=== PATIENT | male | born 1955 | race Hispanic/Latino ===

== ENCOUNTER 2024-05-09 01:01 | Inpatient (IN) | payer OTHER ==
[~2024-05-09] VITALS: Ht 152.4 cm; Wt 60.6 kg
[2024-05-09] VITALS (9 sets, daily range): BP systolic 128–178; BP diastolic 63–77; PULSE 72–93; RESP 16–22; TEMP 97.7–98.5; O2SAT 98–99
--- NOTE | 2024-05-09 01:33 | ERN ---
ED Note History of Present Illness Stated Complaint: SHORTNESS OF BREATH Chief Complaint: Shortness of Breath Time Seen by MD: 01:09 Dictation: Patient is a 68-year-old male with a past medical history of myeloma who was brought from [facility] due to shortness breath. As per report the patient was complaining of shortness of breaths as well was found to be hypoglycemic with a glucose level of 58 at [facility]. Family decided to call EMS for further transportation to the emergency department in order to get evaluation by physician. The patient states that he was feeling better today, said that he has the past day of his life onto later tonight he started having shortness breath. He also reports that he has been urinating a lot more than usual. Allergies: Coded Allergies: No Known Drug Allergies (Unverified Allergy, Unknown, 05/09/24) Review of System Dictation NEGATIVE EXCEPT PER HPI Constitutional: Negative for fever,chills, and weight loss Eyes: Negative for injury, pain,redness, and discharge ENT: Negative for injury,pain or swelling Cardiovascular: denies chest pain, palpitations, and edema Respiratory: Reports shortness breath. Abdomen/GI: Negative for abdominal pain, nausea, vomiting, diarrhea, and constipation Back: Negative for injury and pain : Negative for injury, bleeding and discharge MS/Extremity: Negative for injury and deformity Skin: Negative for rash, and discoloration Neuro: Negative for headache, weakness, numbness, tingling, and seizure Psych: Negative for suicide ideation, homicidal ideation, and hallucinations Initial Vital Sign VS Vital Signs Date Time Temp Pulse Resp B/P (MAP) Pulse Ox O2 Delivery O2 Flow Rate FiO2 05/09/24 01:06 98.1 110 20 138/72 98 Room Air 0 05/09/24 01:29 21 Physical Exam Dictation General: awake, alert, NAD Head/Face: Normocephalic, atraumatic Eyes: PERRL, EOMI, vision at baseline ENT: oral cavity clear, TMs clear, no signs of infection Neck: Trachea midline, supple, no nuchal rigidity Cardiovascular: RRR, normal S1/S2, No MRGs, no JVD Respiratory: CTAB, no respiratory distress, No rales or wheezes Abdomen: Soft , no tender Skin: Warm, dry, normal turgor, no rash MS/Extremity: Pulses equal, no cyanosis, neurovascular intact, FROM Neuro: COAx4, GCS 15, strength 5/5, CN 2-12 intact, normal cerebellar exam, normal gait, Psych: Normal behavior, mood, and affect normal Results (Laboratory/Radiology) Laboratory/Radiology Laboratory Tests Test 05/09/24 01:37 05/09/24 02:51 White Blood Count 4.5 K/uL (4.8-10.8) L Red Blood Count 2.35 MIL/uL (4.50-6.20) L Hemoglobin 7.6 g/dL (14.0-18.0) L Hematocrit 22.9 % (42-54) L Mean Corpuscular Volume 97.4 fL (79-99) Mean Corpuscular Hemoglobin 32.3 pg (27.0-33.0) Mean Corpuscular Hemoglobin Concent 33.2 g/dL (32.0-36.0) Red Cell Distribution Width 14.2 % (11.0-15.5) Platelet Count 75 K/uL (130-400) L Mean Platelet Volume 10.4 fL (7.5-10.5) Immature Granulocyte % (Auto) 0.4 % (0-1) Neutrophils (%) (Auto) 77.8 % (40.0-77.0) H Lymphocytes (%) (Auto) 13.9 % (21.0-51.0) L Monocytes (%) (Auto) 5.7 % (3.0-13.0) Eosinophils (%) (Auto) 2.0 % (0.0-8.0) Basophils (%) (Auto) 0.2 % (0.0-5.0) Neutrophils # (Auto) 3.5 K/uL (1.8-7.7) Lymphocytes # (Auto) 0.6 K/uL (1.0-4.8) L Monocytes # (Auto) 0.3 K/uL (0.1-1.0) Eosinophils # (Auto) 0.09 K/uL (0.00-0.70) Basophils # (Auto) 0.01 K/uL (0.00-0.20) Absolute Immature Granulocyte (auto 0.02 K/uL (0-1) Nucleated Red Blood Cells 0.0 % (0.0-0.19) Sodium Level 135 mmol/L (136-145) L Potassium Level 3.3 mmol/L (3.5-5.1) L Chloride Level 102 mmol/L (101-111) Carbon Dioxide Level 28 mmol/L (21-32) Blood Urea Nitrogen 48 mg/dL (7-18) H Creatinine 2.9 mg/dL (0.5-1.3) H Glomerular Filtration Rate Calc 23 mL/min (>90) Random Glucose 49 mg/dL (70-105) *L Total Calcium 7.4 mg/dL (8.5-10.1) L Troponin I High Sensitivity 17 ng/L (4-75) B-Type Natriuretic Peptide 36 pg/mL (0-100) Whole Blood Glucose 173 MG/DL (70-110) H ED Course ED Course Orders Procedure Category Date Status Time Chest 1vw RAD 05/09/24 Taken 01:12 Cbc With Differential LAB 05/09/24 Complete 01:25 Basic Metabolic Panel LAB 05/09/24 Complete 01:25 Troponin I High LAB 05/09/24 Complete Sensitivity 01:25 B-Type Natriuretic LAB 05/09/24 Complete Peptide 01:26 Dextrose 50%-Water PHA 05/09/24 Complete (D50w) 02:30 Dextrose 50%-Water PHA 05/09/24 Complete (D50w) 02:24 Dextrose 5 % And 0.9 PHA 05/09/24 In Process % Nacl (D5ns) 03:00 Current Medications Medications (Trade) Dose Ordered Sig/Dominguez Route PRN Reason Start Time Stop Time Status Last Admin Dose Admin Dextrose (D50w) 50 ml ONCE ONCE IV 05/09/24 02:30 05/09/24 02:31 DC 05/09/24 02:27 Dextrose (D50w) 50 ml STK-MED ONCE IV 05/09/24 02:24 05/09/24 02:25 DC Dextrose/Sodium Chloride 1,000 ml @ 100 mls/hr Q10H IV 05/09/24 03:00 06/08/24 02:59 05/09/24 02:48 Vital Signs Date Time Temp Pulse Resp B/P (MAP) Pulse Ox O2 Delivery O2 Flow Rate FiO2 05/09/24 01:29 97.5 79 16 137/80 100 Room Air* 0 21 05/09/24 01:06 98.1 110 20 138/72 98 Room Air 0 Medical Decision Making MDM 68-year-old male with a past medical history of myeloma brought to the ER due to shortness breath and hypoglycemia. Patient received DuoNeb treatment at [facility] prior transportation to the emergency department. Initial vital signs performed at our facility reports vital signs within normal limits. Physical exam: Chest was clear to auscultation. No wheezing. Patient was saturating 100% on room air. We will do a chest x-ray, CBC and BMP Patient remains hypoglycemic with a glucose level in the 49. Laboratory was remarkable for CKD. Patient has anemia with a hemoglobin 7.6 He was started on D50 As well the d5 NS 100 cc ordered Case was discussed with the hospitalist who was agreeable to admit the patient for further medical evaluation of hypoglycemia, CKD, anemia. DX & DISP Disposition: Inpatient Decision to Admit Date: May 09, 2024 Decision to Admit Time: 03:35 Departure Impression: Primary Impression: Hypoglycemia Additional Impressions: CKD (chronic kidney disease), Anemia Condition: Stable Referrals: SELF,REFERRAL (PCP) ASH ANDREW MD May 09, 2024 01:33
[2024-05-09 01:47] LABS: BASOPHILS # (AUTO) 0.01 K/uL (0.00-0.20); BASOPHILS % (AUTO) 0.2 % (0.0-5.0); EOSINOPHILS # (AUTO) 0.09 K/uL (0.00-0.70); HEMATOCRIT 22.9 % (42-54); IMMATURE GRANULOCYTE ABSOLUTE 0.02 K/uL (0-1); LYMPHOCYTES # (AUTO) 0.6 K/uL (1.0-4.8); LYMPHOCYTES % (AUTO) 13.9 % (21.0-51.0); MEAN CORPUSCULAR HEMOGLOBIN 32.3 pg (27.0-33.0); MEAN CORPUSCULAR HGB CONC 33.2 g/dL (32.0-36.0); MEAN CORPUSCULAR VOLUME 97.4 fL (79-99); MONOCYTES # (AUTO) 0.3 K/uL (0.1-1.0); MONOCYTES % (AUTO) 5.7 % (3.0-13.0); NEUTROPHILS # (AUTO) 3.5 K/uL (1.8-7.7); NEUTROPHILS % (AUTO) 77.8 % (40.0-77.0); PLATELET COUNT (AUTO) 75 K/uL (130-400); RED BLOOD CELL COUNT(AUTO) 2.35 MIL/uL (4.50-6.20); RED CELL DISTRIBUTION WIDTH 14.2 % (11.0-15.5); WHITE BLOOD COUNT (AUTO) 4.5 K/uL (4.8-10.8)
[2024-05-09 01:57] LABS: CREATININE 2.9 mg/dL (0.5-1.3); POTASSIUM 3.3 mmol/L (3.5-5.1)
[2024-05-09] MEDS: DEXTROSE 50%-WATER 50 ML DISP.SYRIN IV ONE ×2 (02:27)
[2024-05-09] MEDS: DEXTROSE 5 % AND 0.9 % NACL 1,000 ML IV SCH (02:48)
--- NOTE | 2024-05-09 03:42 | HP ---
History of Present Illness Reason for Visit: sob History of Present Illness Mr. Villagomez is a 68-year-old male that was seen and examined today on 05/09/2024. Patient is a good historian of personal health. Patient's Andrey Ho is at bedside Patient states that he came to emergency department with a chief complaint of shortness of breath. Onset was 05/08/2024 at 5:30 p.m.. Location is to lungs. Duration is on and off. Character is described as, "like there was air missing in my chest."There was no alleviating factors. There was no aggravating f actors. Patient denies any associated chest pain. Patient reports associated weakness. Today in the emergency department potassium 3.3, glucose 49 mg/dL, creatinine 2.9, BUN 48, GFR 23. Emergency room physician recommended that patient be admitted with a diagnosis of hypoglycemic episode Past Medical History ADDITIONAL PAST MEDICAL HISTORY: [Negative history of diabetes, positive history for "bone cancer" with last chemo one year ago by Dr. Feldman. CKD] SOCIAL HISTORY: [Former smoker, negative alcohol use negative drug use. Patient lives with his . Patient has good access to health care through his insurance. Patient denies difficulty pain is bills. Patient is typically independent of all his ADLs. Patient is a retired from [employer]] SURGICAL HISTORY: [Denies] Review of Systems General: No Fever, No Chills, No Night Sweats, No Fatigue, No Malaise, No Appetite, No Other HEENT: No Head Aches, No Visual Changes, No Eye Pain, No Ear Pain, No Dysphas ia, No Sinus Congestion, No Post Nasal Drip, No Sore Throat, No Other Pulmonary: Dyspnea; No Cough, No Pleuritic Chest Pain, No Other Cardiovascular: No: Chest Pain, Palpitations, Orthopnea, Paroxysmal Noc. Dyspn ea, Edema, Lt Headedness, Other Gastrointestinal: No: Nausea, Vomiting, Abdominal Pain, Diarrhea, Constipation, Melena, Hematochezia, Other Genitourinary: No Dysuria, No Frequency, No Incontinence, No Hematuria, No Retention, No Other Musculoskeletal: No: other, neck pain, shoulder pain, arm pain, back pain, hand pain, leg pain, foot pain Skin: No Urticaria, No Rash, No Other Neurological: Weakness; No: Numbness, Incoordination, Change in speech, Confusion, Seizures, Other Allergies: Coded Allergies: No Known Drug Allergies (Unverified Allergy, Unknown, 05/09/24) Exam Vital Signs Vital Signs Date Time Temp Pulse Resp B/P (MAP) Pulse Ox O2 Delivery O2 Flow Rate FiO2 05/09/24 01:29 97.5 79 16 137/80 100 Room Air* 0 21 General Appearance: Alert, Oriented X3, Cooperative HEENT: Atraumatic, EOMI, Mucous membr. moist/pink Respiratory: Clear to auscultation, Normal air movement, NL respiratory effort Cardiovascular: Regular rate, Regular rhythm, Normal S1, Normal S2 Abdominal: Normal bowel sounds, Soft, No tenderness Extremities: No edema Skin: No significant lesion Neuro: Normal speech, Strength at 5/5 X4 ext, Sensation intact, Cranial nerves 3-12 NL Psych/Mental Status: Mental status NL, Mood NL, Thoughts/Content NL Assessment/Plan ASSESSMENT: [ Hypoglycemic episode, POA Normocytic anemia, POA Hypokalemia, POA MYRNA versus CKD, POA History of bone cancer PLAN: [ Admit patient to medical floor as inpatient status. Regular diet. Glucometer is every 2 hours. Hypoglycemia protocol. Potassium 25 mEq by mouth times 1. Replace potassium conservatively due to decreased renal function at this time. Consult Nephrology Service, Dr. Iraheta for evaluation and recommendations. Acute kidney injury: Calculate FENA Check urine sodium, creatinine, osmolality Avoid nephrotoxic agents when possible Renally dose all medications when possible Monitor patient's labs. Weight patient daily. Monitor intake and output. Check iron panel, follow up with the results Check serum ferritin, follow up with the results Check LDH, reticulocyte count, peripheral smear, follow up with the results Monitor labs Check stool for occult blood, follow up with the results Transfuse packed red blood cells for hemoglobin less than 7 mg/dL Consider consulting patient's oncologist if indicated. GI prophylaxis, Protonix DVT prophylaxis, heparin ADVANCED CARE PLANNING 1. Which of the following were discussed? Hospice Care - Yes Therapeutic options - Yes Advance Directives - Yes- patient states that he does not have any advance directives in place at this time, however his can make decisions for him if he becomes unable. Other discussions - patient wishes to remain a full code at this time 2. Discussed with who? Patient 3. Voluntary nature of this service was explained to the patient? Yes 4. Amount of time spent - ____ 16 minutes ___ 5. Reviewed by Physician? (if this service was performed by NPP) Yes This document was generated in part using voice recognition software, occasional wrong word or sound alike substitutions may have occurred due to the inherent limitations of voice recognition software. Read the chart carefully and recognize using context, where the substitutions have occurred. Although every effort was made to edit the content, web production artist and typing errors may occur ATTESTATION BY PHYSICIAN I have seen and examined the patient. I reviewed the documentation, medical decision making, and treatment plan as noted by the mid-level provider above. I agree with the findings and plan of care. MARC DAWSON [facility] May 09, 2024 03:42
[2024-05-09] MEDS ORDERED: ondanSETRON 4MG INJ IV PRN (04:00)
[2024-05-09] MEDS ORDERED: hydrALAZine 20MG/ML VIAL IV PRN (04:00)
[2024-05-09] MEDS ORDERED: acetaMINOPHEN 325 MG TAB PO PRN (04:00)
[2024-05-09] MEDS ORDERED: GLUCAGON 1MG KIT 1 MG ML IM PRN (04:00)
[2024-05-09] MEDS ORDERED: morPHINE 2 MG SYG IVP PRN (04:00)
[2024-05-09] MEDS ORDERED: DEXTROSE 50%-WATER 50 ML DISP.SYRIN IV PRN (04:00)
[2024-05-09] MEDS: PoTASSium BIcarbonate/CIT AC 25 MEQ TABLET.EFF PO ONE (04:13)
[2024-05-09 04:24] LABS: % IRON SATURATION 39.6 % (30-44)
[2024-05-09 04:27] LABS: RETICULOCYTE % (AUTO) 1.26 % (0.42-2.23)
--- NOTE | 2024-05-09 04:44 | NUR ---
REPORT GIVEN TO JB
--- NOTE | 2024-05-09 04:48 | NUR ---
NURSE FROM [facility] CALLED AT THIS TIME. PT DID NOT COME WITH PAPERWORK FROM [employer]. PER NURSE, PAPERWORK WAS GIVEN TO EMS. NURSE WILL TRY TO FAX PT INFORMATION AT THIS TIME.
[2024-05-09 06:02] LABS: APPEARANCE,URINE CLEAR (CLEAR); BILIRUBIN,URINE NEGATIVE (NEGATIVE); COLOR,URINE LIGHT-YELLOW (YELLOW); GLUCOSE, URINE (UA) NEGATIVE (NEGATIVE); KETONES,URINE NEGATIVE (NEGATIVE); LEUKOCYTE ESTERASE ,URINE NEGATIVE Leu/uL (NEGATIVE); NITRATE,URINE NEGATIVE (NEGATIVE); OCCULT BLOOD,URINE NEGATIVE (NEGATIVE); PROTEIN,URINE 70 mg/dL (NEGATIVE); UROBILINOGEN,URINE 0.2 mg/dL (0.2-1.0)
[2024-05-09 06:05] LABS: CREATININE,URINE RANDOM 62.19 mg/dL (30-135)
[2024-05-09 06:12] LABS: ADD UA MICROSCOPIC YES
[2024-05-09 06:14] LABS: RBC,URINE 0-1 /HPF (0-1); SQUAMOUS EPITHELIAL CELL,UR RARE /HPF (0-2); WBC,URINE 0-1 /HPF (0-1)
[2024-05-09] MEDS: HEParin 5,000 UNIT VIAL SQ SCH (08:09)
[2024-05-09] MEDS: PANTOPrazole 40 MG TAB DR PO SCH (09:27)
--- NOTE | 2024-05-09 10:36 | CONS ---
NEPHROLOGY CONSULTATION NOTE Date/Time Patient Seen: May 09, 2024 [id number] Reason for Consultation: Shortness of breath, renal failure HISTORY OF PRESENT ILLNESS: This is a 68-year-old male with a past medical history of multiple myeloma on p.o. chemotherapy followed by Dr. Barrientos, restless legs syndrome, heart disease with a defibrillator, atrial fibrillation on anticoagulation, hypertension, chronic kidney disease, diabetes mellitus type 2, anemia and anxiety. He presented to emergency room from [facility] with complaints of shortness of breath and hypoglycemia. He has a recent hospitalization in [facility] for similar concern and was discharged on 05/02/24. Previous on external records were reviewed in detail Glucose levels have remained stable. Hypoglycemia protocol in place. He was noted to have elevated BUN/creatinine. We are consulted for renal failure. Renal function has improved from previous admission Electrolytes are stable. Hemoglobin has remained stable, iron panel was noted He was seen in the medical floor, in no acute distress Multiple family members at the bedside. REVIEW OF SYSTEMS: GENERAL: Positive for generalized weakness and shortness of breath NEUROLOGIC: Negative for any blurry vision, blind spots, double vision, facial asymmetry, dysphagia, dysarthria, hemiparesis, hemisensory deficits, vertigo, ataxia. HEENT: Negative for any head trauma, neck trauma, neck stiffness, photophobia, phonophobia, sinusitis, rhinitis. CARDIAC: Negative for any chest pain, dyspnea on exertion, paroxysmal nocturnal dyspnea, peripheral edema. PULMONARY: Negative for any shortness of breath, wheezing, COPD, or TB exposure. GASTROINTESTINAL: Negative for any abdominal pain, nausea, vomiting, bright red blood per rectum, melena. GENITOURINARY: Negative for any dysuria, hematuria, incontinence. INTEGUMENTARY: Negative for any rashes, cuts, insect bites. RHEUMATOLOGIC: Negative for any joint pains, photosensitive rashes, history of vasculitis or kidney problems. HEMATOLOGIC: Negative for any abnormal bruising, frequent infections or bleeding. PAST MEDICAL HISTORY: Multiple myeloma Restless leg syndrome Heart disease Atrial fibrillation Hypertension Chronic kidney disease with previous hemodialysis Anxiety PAST SURGICAL HISTORY: Arterial Venous Fistula Creation Upper Extremity (Right, Upper) (01/18/2021) Permacath Insertion (2020) Port-a-cath Insertion (2020) Bone marrow biopsy PAST SOCIAL HISTORY: Denies use of alcohol, tobacco or illicit drugs FAMILY HISTORY: Noncontributory PHYSICAL EXAM: GENERAL: Alert and oriented x 3. No acute distress. Well-nourished. EYES: EOMI. Anicteric. HENT: Moist mucous membranes. No scleral icterus. No cervical lymphadenopathy. LUNGS: Clear to auscultation bilaterally. No accessory muscle use. CARDIOVASCULAR: Regular rate and rhythm. No murmur. No JVD. ABDOMEN: Soft, non-tender and non-distended. No palpable masses. EXTREMITIES: No edema. Non-tender. SKIN: No rashes or lesions. Warm. NEUROLOGIC: No focal neurological deficits. CN II-XII grossly intact, but not individually tested. PSYCHIATRIC: Cooperative. Appropriate mood and affect. MEDICATIONS: [ ] Current Medications Medications (Trade) Dose Ordered Sig/Dominguez Route PRN Reason Start Time Stop Time Status Last Admin Dose Admin Acetaminophen (TYLenol 325MG TAB) 650 mg Q6H PRN PO TEMPERATURE GREATER THAN 101.5 05/09/24 04:00 06/08/24 03:59 Dextrose (D50w) 50 ml AD PRN IV HYPOGLYCEMIA PROTOCOL 05/09/24 04:00 06/08/24 03:59 Dextrose/Sodium Chloride 1,000 ml @ 100 mls/hr Q10H IV 05/09/24 03:00 06/08/24 02:59 05/09/24 02:48 100 MLS/HR Glucagon (Glucagon 1mg Kit) 1 mg AD PRN IM HYPOGLYCEMIA PROTOCOL 05/09/24 04:00 06/08/24 03:59 Heparin Sodium (Porcine) (HEParin 5,000 UNIT VIAL) 5,000 unit BID SQ 05/09/24 09:00 06/08/24 08:59 Hydralazine HCl (APRESOLine 20MG INJ) 10 mg Q6H PRN IV For:SBP above 160;DBP above 90 05/09/24 04:00 06/08/24 03:59 Morphine Sulfate (morPHINE 2MG SYG) 2 mg Q4H PRN IVP SEVERE PAIN (7-10) 05/09/24 04:00 05/16/24 03:59 Ondansetron HCl (zoFRAN 4MG INJ) 4 mg Q6H PRN IV NAUSEA/VOMITING 05/09/24 04:00 06/08/24 03:59 Pantoprazole Sodium (PROTonix 40MG TAB) 40 mg DAILY PO 05/09/24 09:00 06/08/24 08:59 05/09/24 09:27 40 MG Vital Signs (last 8hr) Date Time Temp Pulse Resp B/P (MAP) Pulse Ox O2 Delivery O2 Flow Rate FiO2 05/09/24 08:03 97.9 72 16 133/67 99 05/09/24 05:00 97.7 84 20 142/77 98 Room Air 05/09/24 05:00 99 Room Air* 0 21 05/09/24 04:19 98.6 76 17 131/65 100 Nasal Cannula* 2 28 DIAGNOSTICS / RADIOLOGY: LABORATORY: [ ] Hematology Labs: Test 05/09/24 01:37 Range/Units White Blood Count 4.5 L 4.8-10.8 K/uL Red Blood Count 2.35 L 4.50-6.20 MIL/uL Hemoglobin 7.6 L 14.0-18.0 g/dL Hematocrit 22.9 L 42-54 % Mean Corpuscular Volume 97.4 79-99 fL Mean Corpuscular Hemoglobin 32.3 27.0-33.0 pg Mean Corpuscular Hemoglobin Concent 33.2 32.0-36.0 g/dL Red Cell Distribution Width 14.2 11.0-15.5 % Platelet Count 75 L 130-400 K/uL Mean Platelet Volume 10.4 7.5-10.5 fL Immature Granulocyte % (Auto) 0.4 0-1 % Neutrophils (%) (Auto) 77.8 H 40.0-77.0 % Lymphocytes (%) (Auto) 13.9 L 21.0-51.0 % Monocytes (%) (Auto) 5.7 3.0-13.0 % Eosinophils (%) (Auto) 2.0 0.0-8.0 % Basophils (%) (Auto) 0.2 0.0-5.0 % Neutrophils # (Auto) 3.5 1.8-7.7 K/uL Lymphocytes # (Auto) 0.6 L 1.0-4.8 K/uL Monocytes # (Auto) 0.3 0.1-1.0 K/uL Eosinophils # (Auto) 0.09 0.00-0.70 K/uL Basophils # (Auto) 0.01 0.00-0.20 K/uL Absolute Immature Granulocyte (auto 0.02 0-1 K/uL Nucleated Red Blood Cells 0.0 0.0-0.19 % Reticulocyte Count (auto) 1.65049 0.42-2.23 % Immature Reticulocyte Fraction 15.40 H 0.18-0.48 % Chemistry Labs: Test 05/09/24 05:23 05/09/24 01:37 Range/Units Whole Blood Glucose 109 70-110 MG/DL Sodium Level 135 L 136-145 mmol/L Potassium Level 3.3 L 3.5-5.1 mmol/L Chloride Level 102 101-111 mmol/L Carbon Dioxide Level 28 21-32 mmol/L Blood Urea Nitrogen 48 H 7-18 mg/dL Creatinine 2.9 H 0.5-1.3 mg/dL Glomerular Filtration Rate Calc 23 >90 mL/min Random Glucose 49 *L 70-105 mg/dL Total Calcium 7.4 L 8.5-10.1 mg/dL Iron Level 71 65-175 mcg/dL Total Iron Binding Capacity 179 L 250-450 mcg/dL Percent Iron Saturation 39.6 30-44 % Lactate Dehydrogenase 241 H 81-234 U/L Troponin I High Sensitivity 17 4-75 ng/L B-Type Natriuretic Peptide 36 0-100 pg/mL ASSESSMENT: Acute on chronic renal failure Hypoglycemia Anemia Hyponatremia Hypokalemia Multiple myeloma on chemotherapy Thrombocytopenia PLAN: Labs, diagnostic, radiologic exams reviewed and interpreted by myself and supervising physician. We have reviewed external records in detail There is no need for renal replacement therapy at this time. Obtain UA Obtain home medication list. Recommend Oncology consult Start Nephro-Vanesa daily. Follow renal diabetic diet. Start Nepro one can b.i.d. for nutritional support. Require close monitoring of renal function and electrolytes Order CBC, CMP, uric acid, TSH, hemoglobin A1c and electrolytes in am Continue with antibiotics Renal diabetic diet BiPAP as necessary, for respiratory distress Monitor blood pressure adjust medication doses as needed Avoid hypotensive episodes May use Dilaudid 0.5 mg IV every 6 hours as needed for severe pain Monitor blood sugars Strict intake, output, and daily weight should be monitored Please renally adjust medications Avoid nephrotoxic and nonsteroidal drugs Avoid contrast if possible Will continue to monitor renal function, anemia, electrolytes Treatment plan discussed with patient Questions were answered We have discussed with the other team physicians in detail about the care plan We will continue to monitor the patient closely Thank you for allowing us to participate in the care of this patient ATTESTATION BY PHYSICIAN I have seen and examined the patient. I reviewed the documentation, medical decision making, and treatment plan as noted by the mid-level provider above. I agree with the findings and plan of care. ESTEFANI KRAUS MD, [facility] May 09, 2024 10:36
[2024-05-09] MEDS: THIAMINE HCL 100 MG/ML 2ML VIAL IVP SCH (11:00)
--- NOTE | 2024-05-09 16:26 | HMCIMG ---
CHEST 1VW HISTORY: Shortness of breath COMPARISON: None FINDINGS: A frontal projection of the chest was obtained. No acute pulmonary infiltrates is seen. The heart is normal in size. Degenerative changes are seen. Prominent interstitial markings are seen. No evidence of aortic calcification is seen. IMPRESSION: 1. No acute pulmonary infiltrate is seen.
[2024-05-10 03:46] VITALS: BP 143/70; PULSE 79; RESP 18; TEMP 98
[2024-05-10 06:14] LABS: CREATININE 2.1 mg/dL (0.5-1.3); MAGNESIUM 1.6 mg/dL (1.80-2.40); PHOSPHORUS 2.5 mg/dL (2.5-4.9); POTASSIUM 3.5 mmol/L (3.5-5.1); THYROID STIMULATING HORMONE 14.08 uIU/mL (0.36-3.74)
[2024-05-10 06:55] LABS: EOSINOPHILS # (AUTO) 0.16 K/uL (0.00-0.70); EOSINOPHILS % (AUTO) 4.7 % (0.0-8.0); HEMATOCRIT 21.2 % (42-54); IMMATURE GRANULOCYTE ABSOLUTE 0.02 K/uL (0-1); LYMPHOCYTES # (AUTO) 1.1 K/uL (1.0-4.8); LYMPHOCYTES % (AUTO) 32.3 % (21.0-51.0); MEAN CORPUSCULAR VOLUME 96.8 fL (79-99); MONOCYTES # (AUTO) 0.3 K/uL (0.1-1.0); MONOCYTES % (AUTO) 9.4 % (3.0-13.0); NEUTROPHILS # (AUTO) 1.8 K/uL (1.8-7.7); PLATELET COUNT (AUTO) 75 K/uL (130-400); RED BLOOD CELL COUNT(AUTO) 2.19 MIL/uL (4.50-6.20); RED CELL DISTRIBUTION WIDTH 14.6 % (11.0-15.5); WHITE BLOOD COUNT (AUTO) 3.4 K/uL (4.8-10.8)
[2024-05-10 08:00] VITALS: BP 147/75; PULSE 82; RESP 18; TEMP 97.8; O2SAT 100
[2024-05-10] MEDS: Vitamin B Complex/Vit C/Folic Acid PO SCH (08:17)
--- NOTE | 2024-05-10 08:53 | PN ---
SUBJECTIVE: A 68-year-old male been seen on the medical floor. The patient with a history of multiple myeloma, on chemotherapy. The patient has a history of known chronic renal insufficiency, initially presented to the hospital with shortness of breath and hypoglycemia. The patient does have history of chronic renal insufficiency. Creatinine has been elevated and the patient is being seen for all the above. REVIEW OF SYSTEMS: GENERAL: The patient is feeling weak and tired. HEENT: No change in vision. No change in hearing. CARDIOVASCULAR: There is no current chest pain or palpitations. PULMONARY: As described above. GASTROINTESTINAL: He is tolerating a diet. MUSCULOSKELETAL: Complains of weakness. PHYSICAL EXAMINATION: VITAL SIGNS: Blood pressure 147/75, pulse 80s. GENERAL: Chronically ill male, lying in bed on the medical floor. HEENT: Head is atraumatic. Pupils equal, roving to light. Oropharynx is without exudate. Nares clear. NECK: There is no JVP. There is no thyromegaly, no mass. CARDIOVASCULAR: Regular. There is no S3, S4 gallop. LUNGS: Coarse with equal thoracic movement. ABDOMEN: Soft, nondistended, nontender. EXTREMITIES: Reveal no clubbing, no cyanosis. NEUROLOGIC: He is awake. He is alert. LABORATORY DATA: Hemoglobin 7, hematocrit 21, white cell count 3000. Sodium 141, BUN 31, creatinine is 2. IMPRESSION: * Acute on chronic renal failure. * Multiple myeloma. * Diabetes mellitus. * Hypertension. * Anemia. PLAN: The patient's creatinine continues to stabilize. The patient does have a history of multiple myeloma and follows up with Oncology. Electrolytes have all been aggressively repleted. We will continue to follow closely. The patient is encouraged with his therapy. TID: [id number] RECEIPT: [id number]
--- NOTE | 2024-05-10 11:43 | NUR ---
DCP Pt awake, alert, oriented x3 Kyrgyz speaking, pt states he lives with his sister Cynthia Garcia does not recall her phone number, has lived with her for past four years when he was previously sick. Pt states he has a history of cancer and used to be on dialysis. Previous level of function before entering the hospital pt states he is independent and does not use any medical equipment, has not had home health services or skill nursing services. Anticipates discharge is for home with sister Cynthia Garcia. Addendum: 05/10/24 at 1148 by ELIZABETH PADRON RN CM Amended: Links added.
[2024-05-10 12:00] VITALS: BP 146/63; PULSE 75; RESP 18; TEMP 97.9
[2024-05-10] MEDS ORDERED: PoTASSium chloRIDE 20MEQ/100ML 100 ML IV PRN (16:00)
[2024-05-10] MEDS ORDERED: PoTASSium chl 10% ELIXIR 20MEQ 20 MEQ/15 ML UDCUP PO PRN (16:00)
[2024-05-10] MEDS: MAGNESIUM 2GM PREMIX 50ML 50 ML IV PRN (16:04)
[2024-05-10] MEDS: PoTASSium chloRIDE 20MEQ ER 20 MEQ ERTAB PO PRN (16:04)
[2024-05-10 16:11] VITALS: BP 145/70; PULSE 79; RESP 18; TEMP 98.1
[2024-05-10 19:00] VITALS: BP 147/77; PULSE 81; RESP 20; TEMP 98
[2024-05-10] MEDS ORDERED: FURO40TA7 PO (19:38)
[2024-05-10] MEDS ORDERED: PANT40TA54 PO (19:38)
[2024-05-10] MEDS ORDERED: AMLO-258 PO (19:42)
[2024-05-10] MEDS ORDERED: AMMO385C4 TP (19:42)
[2024-05-10] MEDS ORDERED: BUDE0.256 NEB (19:42)
[2024-05-10] MEDS ORDERED: CHOL-34 PO (19:42)
[2024-05-10 21:30] VITALS: O2SAT 98
--- NOTE | 2024-05-10 22:30 | PN ---
[facility] PROGRESS NOTE Date of Service: May 10, 2024 Time of Service: 22:29 SUBJECTIVE: [ ] 05/10/24 Patient seen/care discussed with RN/Scottie stabilizing REVIEW OF SYSTEMS CONSTITUTIONAL: Denies fevers, chills, or night sweats. No unintentional weight loss reported. NEUROLOGICAL: Denies headache, amaurosis fugax, motor weakness, sensory deficit, vertigo/spinning sensation, gait abnormalities, or tremors. ENT: No hearing loss, otalgia, otorrhea, rhinitis, rhinorrhea, hoarseness, or sore throat. CARDIOVASCULAR: Denies any exertional angina, dyspnea on exertion, orthopnea, paroxysmal nocturnal dyspnea, palpitations, life-threatening arrhythmias, claudication. PULMONARY: Denies any shortness of breath, cough, phlegm/sputum, hemoptysis, pleuritic chest pain. SLEEP: Denies morning headaches, daytime somnolence or napping. Denies difficulty falling asleep, staying asleep, waking from sleep. Denies knowledge of snoring. GASTROINTESTINAL: Denies any type of dysphagia to either liquids or solids. Denies nausea, vomiting, pyrosis, early satiety, abdominal pain, diarrhea, constipation, or changes in stool consistency or caliber. Denies coffee-ground emesis, hematemesis, hematochezia, or melanotic stools. GENITOURINARY: Denies frequency, urgency, nocturia, hematuria or incontinence (Storage/Irritative symptoms.) Low urinary stream, straining to void, urinary intermittency or hesitancy, splitting of the voiding stream, terminal dribbling. ENDOCRINOLOGIC: Denies polyuria, polydipsia, polyphagia or heat/cold intolerances. HEMATOLOGIC: Denies thrombophilia/previous clots, or coagulopathy/bleeding disorders. ONCOLOGIC: Denies personal history of malignancy. DERMATOLOGIC: Denies rashes or pruritus. PSYCHIATRIC: Denies any suicidal or homicidal ideation. Denies hallucinations. PHYSICAL EXAM GENERAL APPEARANCE: The patient is awake, alert, and oriented, in no acute cardiopulmonary distress. NEUROLOGICAL: Cranial nerves II-XII grossly intact. Motor is 5/5 in bilateral upper and lower extremities proximal to distal. No sensory deficits. HEENT: Face is symmetric. Pupils are equal and reactive. Extraocular movements are intact. NECK: Supple. No JVD. No thyromegaly. No submental, submandibular, pre- /postauricular, occipital or supraclavicular lymphadenopathy. CHEST: Normal chest expansion. No Telemetry. LUNGS: Absence of any rales, rhonchi or any wheezing. CARDIOVASCULAR: Regular. S1 and S2 normal. No appreciable rubs, murmurs or gallops. ABDOMEN: Soft, nontender, and nondistended. There is no rebound, voluntary guarding, or rigidity. : Deferred. No Sepulveda. EXTREMITIES: Non-edematous and not cyanotic. No clubbing. Good capillary refill. SKIN: No skin breakdown. Vital Signs (last 8hr) Date Time Temp Pulse Resp B/P (MAP) Pulse Ox O2 Delivery O2 Flow Rate FiO2 05/10/24 21:30 98 Room Air* 0 21 05/10/24 19:00 98.1 81 20 147/77 98 Room Air 05/10/24 16:11 98.1 79 18 145/70 100 LABS: Laboratory: Test 05/10/24 20:00 05/10/24 06:31 05/10/24 05:28 05/09/24 05:34 Range/Units Whole Blood Glucose 113 H 70-110 MG/DL White Blood Count 3.4 L 4.8-10.8 K/uL Red Blood Count 2.19 L 4.50-6.20 MIL/uL Hemoglobin 7.0 *L 14.0-18.0 g/dL Hematocrit 21.2 L 42-54 % Mean Corpuscular Volume 96.8 79-99 fL Mean Corpuscular Hemoglobin 32.0 27.0-33.0 pg Mean Corpuscular Hemoglobin Concent 33.0 32.0-36.0 g/dL Red Cell Distribution Width 14.6 11.0-15.5 % Platelet Count 75 L 130-400 K/uL Mean Platelet Volume 10.7 H 7.5-10.5 fL Immature Granulocyte % (Auto) 0.6 0-1 % Neutrophils (%) (Auto) 53.0 40.0-77.0 % Lymphocytes (%) (Auto) 32.3 21.0-51.0 % Monocytes (%) (Auto) 9.4 3.0-13.0 % Eosinophils (%) (Auto) 4.7 0.0-8.0 % Basophils (%) (Auto) 0.0 0.0-5.0 % Neutrophils # (Auto) 1.8 1.8-7.7 K/uL Lymphocytes # (Auto) 1.1 1.0-4.8 K/uL Monocytes # (Auto) 0.3 0.1-1.0 K/uL Eosinophils # (Auto) 0.16 0.00-0.70 K/uL Basophils # (Auto) 0.00 0.00-0.20 K/uL Absolute Immature Granulocyte (auto 0.02 0-1 K/uL Nucleated Red Blood Cells 0.0 0.0-0.19 % Sodium Level 141 136-145 mmol/L Potassium Level 3.5 3.5-5.1 mmol/L Chloride Level 110 101-111 mmol/L Carbon Dioxide Level 24 21-32 mmol/L Blood Urea Nitrogen 31 H 7-18 mg/dL Creatinine 2.1 H 0.5-1.3 mg/dL Glomerular Filtration Rate Calc 34 >90 mL/min Random Glucose 95 70-105 mg/dL Hemoglobin A1c 6.0 4.0-6.0 % Estimated Average Glucose (eAG) 126 70-126 mg/dL Total Calcium 7.0 L 8.5-10.1 mg/dL Phosphorus Level 2.5 2.5-4.9 mg/dL Magnesium Level 1.60 L 1.80-2.40 mg/dL Thyroid Stimulating Hormone (TSH) 14.08 H 0.36-3.74 uIU/mL Urine Color LIGHT-YELLOW YELLOW Urine Appearance CLEAR CLEAR Urine pH 7.0 5.0-8.0 Urine Specific [place] 1.011 1.001-1.031 Urine Protein 70 H NEGATIVE mg/dL Urine Glucose (UA) NEGATIVE NEGATIVE mg/dL Urine Ketones NEGATIVE NEGATIVE mg/dL Urine Occult Blood NEGATIVE NEGATIVE Urine Nitrate NEGATIVE NEGATIVE Urine Bilirubin NEGATIVE NEGATIVE mg/dL Urine Urobilinogen 0.2 0.2-1.0 mg/dL Urine Leukocyte Esterase NEGATIVE NEGATIVE Jessy/uL Urine RBC 0-1 0-1 /HPF Urine WBC 0-1 0-1 /HPF Urine Squamous Epithelial Cells RARE 0-2 /HPF Urine Bacteria None None Seen /HPF Urine Osmolality 378 50-1200 mOsm/kg Urine Random Creatinine 62.19 30-135 mg/dL Urine Random Sodium 44 40-220 mmol/l Test 05/09/24 01:37 Range/Units Reticulocyte Count (auto) 1.40901 0.42-2.23 % Immature Reticulocyte Fraction 15.40 H 0.18-0.48 % Iron Level 71 65-175 mcg/dL Total Iron Binding Capacity 179 L 250-450 mcg/dL Percent Iron Saturation 39.6 30-44 % Lactate Dehydrogenase 241 H 81-234 U/L Troponin I High Sensitivity 17 4-75 ng/L B-Type Natriuretic Peptide 36 0-100 pg/mL Current Medications Medications (Trade) Dose Ordered Sig/Dominguez Route PRN Reason Start Time Stop Time Status Last Admin Dose Admin Acetaminophen (TYLenol 325MG TAB) 650 mg Q6H PRN PO TEMPERATURE GREATER THAN 101.5 05/09/24 04:00 06/08/24 03:59 Dextrose (D50w) 50 ml AD PRN IV HYPOGLYCEMIA PROTOCOL 05/09/24 04:00 06/08/24 03:59 Dextrose/Sodium Chloride 1,000 ml @ 100 mls/hr Q10H IV 05/09/24 03:00 06/08/24 02:59 05/09/24 05:00 100 MLS/HR Glucagon (Glucagon 1mg Kit) 1 mg AD PRN IM HYPOGLYCEMIA PROTOCOL 05/09/24 04:00 06/08/24 03:59 Heparin Sodium (Porcine) (HEParin 5,000 UNIT VIAL) 5,000 unit BID SQ 05/09/24 09:00 05/10/24 22:09 DC 05/09/24 20:09 5,000 UNIT Hydralazine HCl (APRESOLine 20MG INJ) 10 mg Q6H PRN IV For:SBP above 160;DBP above 90 05/09/24 04:00 06/08/24 03:59 Magnesium Sulfate 50 ml @ 0 mls/hr PROTOCOL PRN IV MAGNESIUM PROTOCOL 05/10/24 16:00 06/09/24 15:59 05/10/24 16:04 0 MLS/HR Morphine Sulfate (morPHINE 2MG SYG) 2 mg Q4H PRN IVP SEVERE PAIN (7-10) 05/09/24 04:00 05/16/24 03:59 Ondansetron HCl (zoFRAN 4MG INJ) 4 mg Q6H PRN IV NAUSEA/VOMITING 05/09/24 04:00 06/08/24 03:59 Pantoprazole Sodium (PROTonix 40MG TAB) 40 mg DAILY PO 05/09/24 09:00 06/08/24 08:59 05/10/24 08:17 40 MG Potassium Chloride 100 ml @ 100 mls/hr AD PRN IV POTASSIUM PROTOCOL 05/10/24 16:00 06/09/24 15:59 Potassium Chloride (K-Dur/Klor-Con 20meq) 20 meq AD PRN PO POTASSIUM PROTOCOL 05/10/24 16:00 06/09/24 15:59 05/10/24 16:04 20 MEQ Potassium Chloride (KCl 10% Elixir 20meq/15ml) 20 meq AD PRN PO POTASSIUM PROTOCOL 05/10/24 16:00 06/09/24 15:59 Thiamine HCl (Vitamin B-1) 100 mg DAILY IVP 05/09/24 11:00 06/08/24 10:59 05/10/24 08:17 100 MG Vitamin B Complex/ Vit C/Folic Acid (Nephrovite Tablet) 1 cap DAILY PO 05/10/24 09:00 06/09/24 08:59 05/10/24 08:17 1 CAP DIAGNOSTICS / RADIOLOGY: [ ] ASSESSMENT: [ ] PLAN: [ ] KAROLINE HUGHES MD May 10, 2024 22:30
[2024-05-11] VITALS (8 sets, daily range): BP systolic 127–152; BP diastolic 59–83; PULSE 73–86; RESP 16–20; TEMP 97.7–98.8; O2SAT 98–99
--- NOTE | 2024-05-11 12:21 | PN ---
FOLLOWUP PROGRESS NOTE SUBJECTIVE: A 68-year-old male who has a history of known multiple myeloma, on therapy. The patient also with a history of atrial fibrillation, on anticoagulation. He has a history of underlying renal dysfunction with an elevated BUN and creatinine. The patient initially presented with increasing shortness of breath and orthopnea. The patient was started on the diuretics. The patient has a history of known chronic renal insufficiency with an elevated BUN and creatinine and the patient is being seen as a followup visit for all the above. REVIEW OF SYSTEMS: GENERAL: He is feeling improved since admission. HEENT: No change in vision. No change in hearing. CARDIOVASCULAR: There is no current chest pain or palpitations. PULMONARY: As described above. GASTROINTESTINAL: He is tolerating diet. MUSCULOSKELETAL: Complains of weakness. PHYSICAL EXAMINATION: VITAL SIGNS: Blood pressure is ____ pulse in the 70s. GENERAL: Chronically ill male, older than appearing. HEENT: Head is atraumatic. Pupils equal, roving to light. Oropharynx is without exudate. Nares clear. NECK: There is no JVP. There is no thyromegaly, no mass. CARDIOVASCULAR: Regular. There is no S3, S4 gallop. LUNGS: Coarse with equal thoracic movement. ABDOMEN: Soft, nondistended, nontender. EXTREMITIES: Reveal no clubbing, no cyanosis. NEUROLOGIC: He is awake. He is alert. He is oriented. LABORATORY DATA: Creatinine is 2.1, hemoglobin 7. IMPRESSION: * Acute on chronic renal failure. * Multiple myeloma. * Diabetes mellitus. * Hypertension. * History of anemia. PLAN: The patient's workup is ongoing per Oncology. The patient's creatinine has remained fairly stable. All labs can be repeated in the morning. The patient's IV fluids can be discontinued once he is taking an adequate diet. We will follow closely and make further recommendations accordingly. TID: [id number] RECEIPT: [id number]
[2024-05-12] VITALS (7 sets, daily range): BP systolic 138–153; BP diastolic 68–81; PULSE 77–99; RESP 16–19; TEMP 97.9–98.3; O2SAT 97–100
[2024-05-12 05:03] LABS: EOSINOPHILS # (AUTO) 0.13 K/uL (0.00-0.70); EOSINOPHILS % (AUTO) 3.7 % (0.0-8.0); IMMATURE GRANULOCYTE ABSOLUTE 0.01 K/uL (0-1); LYMPHOCYTES # (AUTO) 1.2 K/uL (1.0-4.8); LYMPHOCYTES % (AUTO) 34.9 % (21.0-51.0); MEAN CORPUSCULAR HEMOGLOBIN 32.1 pg (27.0-33.0); MEAN CORPUSCULAR HGB CONC 32.8 g/dL (32.0-36.0); MEAN CORPUSCULAR VOLUME 97.6 fL (79-99); MONOCYTES # (AUTO) 0.3 K/uL (0.1-1.0); MONOCYTES % (AUTO) 8.6 % (3.0-13.0); NEUTROPHILS # (AUTO) 1.8 K/uL (1.8-7.7); NEUTROPHILS % (AUTO) 52.5 % (40.0-77.0); PLATELET COUNT (AUTO) 78 K/uL (130-400); RED BLOOD CELL COUNT(AUTO) 2.09 MIL/uL (4.50-6.20); WHITE BLOOD COUNT (AUTO) 3.5 K/uL (4.8-10.8)
[2024-05-12 05:07] LABS: HEMATOCRIT 20.4 % (42-54)
[2024-05-12 05:20] LABS: CREATININE 1.9 mg/dL (0.5-1.3); PHOSPHORUS 2.6 mg/dL (2.5-4.9); POTASSIUM 3.4 mmol/L (3.5-5.1)
--- NOTE | 2024-05-12 06:46 | NUR ---
PATIENT UPDATE PT CONTINUES WITH THE D5NS AT 100 CC/HR, BLOOD SUGARS OVERNIGHT AT 174 THEN 80 THIS AM. HEMOGLOBIN AT 6.7 THIS AM, HAD BEEN RUNNING THIS LOW BLOOD COUNT SINCE ADM TO THE FLOOR. Deepali W[employer] CALLED AND ORDER PLACED TO TRANSFUSE 1 UNIT OF PRBC FOR TODAY, TYPE AND SCREEN DONE, PT IN AGREEMENT FOR THE BLOOD TRANSFUSION FOR THE 1 UNIT OF PRBC. CONSENT SECURED. PT FINALLY ABLE TO MOVE HIS BOWELS THIS AM AFTER 4 DAYS, WAS ABLE TO AMBULATE TO THE RESTROOM USING THE WALKER WITH STAND BY ASSIST. PT STATED FEELING BETTER COMPARED TO HOW HE WAS WHEN HE FIRST GET ADMITTED TO THE FLOOR.
--- NOTE | 2024-05-12 13:11 | PN ---
FOLLOWUP PROGRESS NOTE SUBJECTIVE: A 68-year-old male with a history of known multiple myeloma. The patient with a history of underlying renal dysfunction. The patient initially presented with increasing shortness of breath and orthopnea. The patient's pulmonary symptoms have improved and the patient is being seen as a followup visit for all of the above. The patient is for blood transfusion. REVIEW OF SYSTEMS: GENERAL: The patient is feeling weak and tired. HEENT: No change in vision. No change in hearing, no nasal discharge, no sore throat. CARDIOVASCULAR: There is no current chest pain or palpitations. PULMONARY: As described above. GASTROINTESTINAL: He is tolerating a diet. MUSCULOSKELETAL: Complains of weakness. PHYSICAL EXAMINATION: VITAL SIGNS: Blood pressure 150/81, pulse in the 80s, afebrile. GENERAL: Chronically ill male, lying in bed on medical floor. HEENT: Head is atraumatic. Pupils equal, roving to light. Oropharynx is without exudate. Nares clear. NECK: There is no JVP. There is no thyromegaly, no mass. CARDIOVASCULAR: Regular. There is no S3, S4 gallop. LUNGS: Coarse with equal thoracic movement. ABDOMEN: Soft, nondistended, nontender. EXTREMITIES: Reveal no clubbing, no cyanosis. NEUROLOGIC: He is awake. He is alert. LABORATORY DATA: Hemoglobin 6.7, hematocrit 20. Sodium 139, potassium 3.4, BUN 18, creatinine 1.9. IMPRESSION: * Acute on chronic renal failure. * Multiple myeloma. * Diabetes mellitus. * Hypertension. * Anemia. PLAN: The patient's renal function continues to slowly improve. The patient is for blood transfusion and we will continue to follow closely. All labs can be repeated in the morning. The patient's blood pressure is under adequate control. TID: [id number] RECEIPT: [id number]
--- NOTE | 2024-05-12 15:31 | PN ---
[facility] PROGRESS NOTE Date of Service: May 11, 2024 Time of Service: 15:31 SUBJECTIVE: [ ] 05/10/24 Patient seen/care discussed with RN/Creatinine stabilizing 05/11/24 patient was seen and examined. Case discussed with the RN appreciate Nephrology help 05/12/24 patient was seen and examined. Case discussed with the RN. He denies any complaints including shortness breath chest pain fever or chills REVIEW OF SYSTEMS CONSTITUTIONAL: Denies fevers, chills, or night sweats. No unintentional weight loss reported. NEUROLOGICAL: Denies headache, amaurosis fugax, motor weakness, sensory deficit, vertigo/spinning sensation, gait abnormalities, or tremors. ENT: No hearing loss, otalgia, otorrhea, rhinitis, rhinorrhea, hoarseness, or sore throat. CARDIOVASCULAR: Denies any exertional angina, dyspnea on exertion, orthopnea, paroxysmal nocturnal dyspnea, palpitations, life-threatening arrhythmias, claudication. PULMONARY: Denies any shortness of breath, cough, phlegm/sputum, hemoptysis, pleuritic chest pain. SLEEP: Denies morning headaches, daytime somnolence or napping. Denies difficulty falling asleep, staying asleep, waking from sleep. Denies knowledge of snoring. GASTROINTESTINAL: Denies any type of dysphagia to either liquids or solids. Denies nausea, vomiting, pyrosis, early satiety, abdominal pain, diarrhea, constipation, or changes in stool consistency or caliber. Denies coffee-ground emesis, hematemesis, hematochezia, or melanotic stools. GENITOURINARY: Denies frequency, urgency, nocturia, hematuria or incontinence (Storage/Irritative symptoms.) Low urinary stream, straining to void, urinary intermittency or hesitancy, splitting of the voiding stream, terminal dribbling. ENDOCRINOLOGIC: Denies polyuria, polydipsia, polyphagia or heat/cold intolerances. HEMATOLOGIC: Denies thrombophilia/previous clots, or coagulopathy/bleeding disorders. ONCOLOGIC: Denies personal history of malignancy. DERMATOLOGIC: Denies rashes or pruritus. PSYCHIATRIC: Denies any suicidal or homicidal ideation. Denies hallucinations. PHYSICAL EXAM GENERAL APPEARANCE: The patient is awake, alert, and oriented, in no acute cardiopulmonary distress. NEUROLOGICAL: Cranial nerves II-XII grossly intact. Motor is 5/5 in bilateral upper and lower extremities proximal to distal. No sensory deficits. HEENT: Face is symmetric. Pupils are equal and reactive. Extraocular movements are intact. NECK: Supple. No JVD. No thyromegaly. No submental, submandibular, pre- /postauricular, occipital or supraclavicular lymphadenopathy. CHEST: Normal chest expansion. No Telemetry. LUNGS: Absence of any rales, rhonchi or any wheezing. CARDIOVASCULAR: Regular. S1 and S2 normal. No appreciable rubs, murmurs or gallops. ABDOMEN: Soft, nontender, and nondistended. There is no rebound, voluntary guarding, or rigidity. : Deferred. No Sepulveda. EXTREMITIES: Non-edematous and not cyanotic. No clubbing. Good capillary refill. SKIN: No skin breakdown. Vital Signs (last 8hr) Date Time Temp Pulse Resp B/P (MAP) Pulse Ox O2 Delivery O2 Flow Rate FiO2 05/12/24 12:00 97.9 77 16 138/72 98 Room Air 21 05/12/24 08:30 97 Room Air* 0 21 05/12/24 08:00 98.2 88 16 150/81 97 Room Air 21 LABS: Laboratory: Test 05/12/24 11:20 05/12/24 04:46 05/12/24 03:46 05/11/24 20:06 Range/Units Whole Blood Glucose 111 H 70-110 MG/DL White Blood Count 3.5 L 4.8-10.8 K/uL Red Blood Count 2.09 L 4.50-6.20 MIL/uL Hemoglobin 6.7 *L 14.0-18.0 g/dL Hematocrit 20.4 *L 42-54 % Mean Corpuscular Volume 97.6 79-99 fL Mean Corpuscular Hemoglobin 32.1 27.0-33.0 pg Mean Corpuscular Hemoglobin Concent 32.8 32.0-36.0 g/dL Red Cell Distribution Width 15.0 11.0-15.5 % Platelet Count 78 L 130-400 K/uL Mean Platelet Volume 10.1 7.5-10.5 fL Immature Granulocyte % (Auto) 0.3 0-1 % Neutrophils (%) (Auto) 52.5 40.0-77.0 % Lymphocytes (%) (Auto) 34.9 21.0-51.0 % Monocytes (%) (Auto) 8.6 3.0-13.0 % Eosinophils (%) (Auto) 3.7 0.0-8.0 % Basophils (%) (Auto) 0.0 0.0-5.0 % Neutrophils # (Auto) 1.8 1.8-7.7 K/uL Lymphocytes # (Auto) 1.2 1.0-4.8 K/uL Monocytes # (Auto) 0.3 0.1-1.0 K/uL Eosinophils # (Auto) 0.13 0.00-0.70 K/uL Basophils # (Auto) 0.00 0.00-0.20 K/uL Absolute Immature Granulocyte (auto 0.01 0-1 K/uL Nucleated Red Blood Cells 0.0 0.0-0.19 % Sodium Level 139 136-145 mmol/L Potassium Level 3.4 L 3.5-5.1 mmol/L Chloride Level 110 101-111 mmol/L Carbon Dioxide Level 23 21-32 mmol/L Blood Urea Nitrogen 18 7-18 mg/dL Creatinine 1.9 H 0.5-1.3 mg/dL Glomerular Filtration Rate Calc 38 >90 mL/min Random Glucose 87 70-105 mg/dL Total Calcium 7.4 L 8.5-10.1 mg/dL Phosphorus Level 2.6 2.5-4.9 mg/dL Bedside Glucose Comment Notified Nurse Current Medications Medications (Trade) Dose Ordered Sig/Dominguez Route PRN Reason Start Time Stop Time Status Last Admin Dose Admin Acetaminophen (TYLenol 325MG TAB) 650 mg Q6H PRN PO TEMPERATURE GREATER THAN 101.5 05/09/24 04:00 06/08/24 03:59 Dextrose (D50w) 50 ml AD PRN IV HYPOGLYCEMIA PROTOCOL 05/09/24 04:00 06/08/24 03:59 Dextrose/Sodium Chloride 1,000 ml @ 100 mls/hr Q10H IV 05/09/24 03:00 06/08/24 02:59 05/12/24 02:25 100 MLS/HR Glucagon (Glucagon 1mg Kit) 1 mg AD PRN IM HYPOGLYCEMIA PROTOCOL 05/09/24 04:00 06/08/24 03:59 Heparin Sodium (Porcine) (HEParin 5,000 UNIT VIAL) 5,000 unit BID SQ 05/09/24 09:00 3/7/25 22:09 DC 05/09/24 20:09 5,000 UNIT Hydralazine HCl (APRESOLine 20MG INJ) 10 mg Q6H PRN IV For:SBP above 160;DBP above 90 05/09/24 04:00 06/08/24 03:59 Magnesium Sulfate 50 ml @ 0 mls/hr PROTOCOL PRN IV MAGNESIUM PROTOCOL 05/10/24 16:00 06/09/24 15:59 05/10/24 16:04 0 MLS/HR Morphine Sulfate (morPHINE 2MG SYG) 2 mg Q4H PRN IVP SEVERE PAIN (7-10) 05/09/24 04:00 05/16/24 03:59 Ondansetron HCl (zoFRAN 4MG INJ) 4 mg Q6H PRN IV NAUSEA/VOMITING 05/09/24 04:00 06/08/24 03:59 Pantoprazole Sodium (PROTonix 40MG TAB) 40 mg DAILY PO 05/09/24 09:00 06/08/24 08:59 05/12/24 08:30 40 MG Potassium Chloride 100 ml @ 100 mls/hr AD PRN IV POTASSIUM PROTOCOL 05/10/24 16:00 06/09/24 15:59 Potassium Chloride (K-Dur/Klor-Con 20meq) 20 meq AD PRN PO POTASSIUM PROTOCOL 05/10/24 16:00 06/09/24 15:59 05/10/24 16:04 20 MEQ Potassium Chloride (KCl 10% Elixir 20meq/15ml) 20 meq AD PRN PO POTASSIUM PROTOCOL 05/10/24 16:00 06/09/24 15:59 Thiamine HCl (Vitamin B-1) 100 mg DAILY IVP 05/09/24 11:00 06/08/24 10:59 05/12/24 08:30 100 MG Vitamin B Complex/ Vit C/Folic Acid (Nephrovite Tablet) 1 cap DAILY PO 05/10/24 09:00 06/09/24 08:59 05/12/24 08:30 1 CAP DIAGNOSTICS / RADIOLOGY: [ ] ASSESSMENT: [ ] PLAN: [ ] KAROLINE HUGHES MD May 12, 2024 15:31
[2024-05-12 21:04] LABS: HEMATOCRIT 23.6 % (42-54)
[2024-05-13] VITALS (7 sets, daily range): BP systolic 137–158; BP diastolic 66–90; PULSE 76–115; RESP 17–21; TEMP 97.8–99.1; O2SAT 97
[2024-05-13 03:16] LABS: RED BLOOD CELL COUNT(AUTO) 2.61 MIL/uL (4.50-6.20); RED CELL DISTRIBUTION WIDTH 16.8 % (11.0-15.5)
[2024-05-13 03:29] LABS: ALBUMIN 1.6 g/dL (3.5-5.0); BILIRUBIN,TOTAL 0.4 mg/dL (0.2-1.0); CREATININE 1.9 mg/dL (0.5-1.3); POTASSIUM 3.5 mmol/L (3.5-5.1); TOTAL PROTEIN, SERUM 5.5 g/dL (6.0-8.3)
[2024-05-13 03:31] LABS: HEMATOCRIT 24.4 % (42-54); MEAN CORPUSCULAR HEMOGLOBIN 31.8 pg (27.0-33.0); MEAN CORPUSCULAR VOLUME 93.5 fL (79-99); PLATELET COUNT (AUTO) 63 K/uL (130-400); WHITE BLOOD COUNT (AUTO) 3.7 K/uL (4.8-10.8)
[2024-05-13 04:41] LABS: PLATELET MORPHOLOGY COMMENT DECREASED
[2024-05-13 09:09] LABS: HEMATOCRIT 24.6 % (42-54)
[2024-05-13] MEDS: amLODIPine 5 MG TAB PO SCH (09:15)
--- NOTE | 2024-05-13 12:36 | PN ---
NEPHROLOGY PROGRESS NOTE Date/Time Patient Seen: May 13, 2024 Reason for Consultation: 12:34 SUBJECTIVE: This is a 68-year-old male with a past medical history of multiple myeloma on p.o. chemotherapy followed by Dr. Barrientos, restless legs syndrome, heart disease with a defibrillator, atrial fibrillation on anticoagulation, hypertension, chronic kidney disease, diabetes mellitus type 2, anemia and anxiety. He presented to emergency room from [facility] with complaints of shortness of breath and hypoglycemia. He has a recent hospitalization in [facility] for similar concern and was discharged on 05/02/24. Previous on external records were reviewed in detail Glucose levels have remained stable. Hypoglycemia protocol in place. He was noted to have elevated BUN/creatinine. We are consulted for renal failure. Renal function is stable. Electrolytes are stable. He was seen in the medical floor, in no acute distress REVIEW OF SYSTEMS: GENERAL: Positive for generalized weakness and shortness of breath NEUROLOGIC: Negative for any blurry vision, blind spots, double vision, facial asymmetry, dysphagia, dysarthria, hemiparesis, hemisensory deficits, vertigo, ataxia. HEENT: Negative for any head trauma, neck trauma, neck stiffness, photophobia, phonophobia, sinusitis, rhinitis. CARDIAC: Negative for any chest pain, dyspnea on exertion, paroxysmal nocturnal dyspnea, peripheral edema. PULMONARY: Negative for any shortness of breath, wheezing, COPD, or TB exposure. GASTROINTESTINAL: Negative for any abdominal pain, nausea, vomiting, bright red blood per rectum, melena. GENITOURINARY: Negative for any dysuria, hematuria, incontinence. INTEGUMENTARY: Negative for any rashes, cuts, insect bites. RHEUMATOLOGIC: Negative for any joint pains, photosensitive rashes, history of vasculitis or kidney problems. HEMATOLOGIC: Negative for any abnormal bruising, frequent infections or bleeding. PHYSICAL EXAM: GENERAL: Alert and oriented x 3. No acute distress. Well-nourished. EYES: EOMI. Anicteric. HENT: Moist mucous membranes. No scleral icterus. No cervical lymphadenopathy. LUNGS: Clear to auscultation bilaterally. No accessory muscle use. CARDIOVASCULAR: Regular rate and rhythm. No murmur. No JVD. ABDOMEN: Soft, non-tender and non-distended. No palpable masses. EXTREMITIES: No edema. Non-tender. SKIN: No rashes or lesions. Warm. NEUROLOGIC: No focal neurological deficits. CN II-XII grossly intact, but not individually tested. PSYCHIATRIC: Cooperative. Appropriate mood and affect. LABORATORY: [ ] Hematology Labs: Test 05/13/24 09:03 05/13/24 03:09 05/12/24 04:46 Range/Units Hemoglobin 8.2 L 14.0-18.0 g/dL Hematocrit 24.6 L 42-54 % White Blood Count 3.7 L 4.8-10.8 K/uL Red Blood Count 2.61 #L 4.50-6.20 MIL/uL Mean Corpuscular Volume 93.5 79-99 fL Mean Corpuscular Hemoglobin 31.8 27.0-33.0 pg Mean Corpuscular Hemoglobin Concent 34.0 32.0-36.0 g/dL Red Cell Distribution Width 16.8 H 11.0-15.5 % Platelet Count 63 L 130-400 K/uL Mean Platelet Volume 9.8 7.5-10.5 fL Nucleated Red Blood Cells 0.0 0.0-0.19 % Platelet Morphology Comment DECREASED Immature Granulocyte % (Auto) 0.3 0-1 % Neutrophils (%) (Auto) 52.5 40.0-77.0 % Lymphocytes (%) (Auto) 34.9 21.0-51.0 % Monocytes (%) (Auto) 8.6 3.0-13.0 % Eosinophils (%) (Auto) 3.7 0.0-8.0 % Basophils (%) (Auto) 0.0 0.0-5.0 % Neutrophils # (Auto) 1.8 1.8-7.7 K/uL Lymphocytes # (Auto) 1.2 1.0-4.8 K/uL Monocytes # (Auto) 0.3 0.1-1.0 K/uL Eosinophils # (Auto) 0.13 0.00-0.70 K/uL Basophils # (Auto) 0.00 0.00-0.20 K/uL Absolute Immature Granulocyte (auto 0.01 0-1 K/uL Chemistry Labs: Test 05/13/24 11:22 05/13/24 03:09 05/12/24 03:46 05/11/24 20:06 Range/Units Whole Blood Glucose 103 70-110 MG/DL Sodium Level 141 136-145 mmol/L Potassium Level 3.5 3.5-5.1 mmol/L Chloride Level 112 H 101-111 mmol/L Carbon Dioxide Level 25 21-32 mmol/L Blood Urea Nitrogen 15 7-18 mg/dL Creatinine 1.9 H 0.5-1.3 mg/dL Glomerular Filtration Rate Calc 38 >90 mL/min Random Glucose 89 70-105 mg/dL Total Calcium 7.1 L 8.5-10.1 mg/dL Total Bilirubin 0.4 0.2-1.0 mg/dL Aspartate Amino Transf (AST/SGOT) 26 10-37 U/L Alanine Aminotransferase (ALT/SGPT) 83 H 12-78 U/L Alkaline Phosphatase 133 50-136 U/L Total Protein 5.5 L 6.0-8.3 g/dL Albumin 1.6 L 3.5-5.0 g/dL Phosphorus Level 2.6 2.5-4.9 mg/dL Bedside Glucose Comment Notified Nurse DIAGNOSTICS / RADIOLOGY: REASON: SOB, ORDERING PHYSICIAN: ASH ANDREW MD PROCEDURE: CXR1VW - CHEST 1VW CHEST 1VW HISTORY: Shortness of breath COMPARISON: None FINDINGS: A frontal projection of the chest was obtained. No acute pulmonary infiltrates is seen. The heart is normal in size. Degenerative changes are seen. Prominent interstitial markings are seen. No evidence of aortic calcification is seen. IMPRESSION: 1. No acute pulmonary infiltrate is seen. DICTATED BY: DARREN MILAN MD DATE: 05/09/24 3811 ASSESSMENT: Acute on chronic renal failure Hypoglycemia Anemia Hyponatremia Hypokalemia Multiple myeloma on chemotherapy Thrombocytopenia PLAN: Labs, diagnostic, radiologic exams reviewed and interpreted by myself and supervising physician. We have reviewed external records in detail Require close monitoring of renal function and electrolytes Order CBC, CMP, and electrolytes in am Continue with antibiotics Renal diabetic diet BiPAP as necessary, for respiratory distress Monitor blood pressure adjust medication doses as needed Avoid hypotensive episodes May use Dilaudid 0.5 mg IV every 6 hours as needed for severe pain Monitor blood sugars Strict intake, output, and daily weight should be monitored Please renally adjust medications Avoid nephrotoxic and nonsteroidal drugs Avoid contrast if possible Will continue to monitor renal function, anemia, electrolytes Treatment plan discussed with patient Questions were answered We have discussed with the other team physicians in detail about the care plan We will continue to monitor the patient closely ATTESTATION BY PHYSICIAN I have seen and examined the patient. I reviewed the documentation, medical decision making, and treatment plan as noted by the mid-level provider above. I agree with the findings and plan of care. ESTEFANI KRAUS MD, [facility] May 13, 2024 12:36
[2024-05-13 14:49] LABS: HEMATOCRIT 25.8 % (42-54)
--- NOTE | 2024-05-13 15:51 | PN ---
[facility] PROGRESS NOTE Date of Service: May 13, 2024 Time of Service: 15:32 SUBJECTIVE: Mr. Villagomez is a 68-year-old male that was seen and examined today on 05/09/2024. Patient is a good historian of personal health. Patient's Andrey Ho is at bedside Patient states that he came to emergency department with a chief complaint of shortness of breath. Onset was 05/08/2024 at 5:30 p.m.. Location is to lungs. Duration is on and off. Character is described as, "like there was air missing in my chest."There was no alleviating factors. There was no aggravating factors. Patient denies any associated chest pain. Patient reports associated weakness. Today in the emergency department potassium 3.3, glucose 49 mg/dL, creatinine 2.9, BUN 48, GFR 23. Emergency room physician recommended that patient be admitted with a diagnosis of hypoglycemic episode 05/10/24 Patient seen/care discussed with RN/Creatinine stabilizing 05/11/24 patient was seen and examined. Case discussed with the RN appreciate Nephrology help 05/12/24 patient was seen and examined. Case discussed with the RN. He denies any complaints including shortness breath chest pain fever or chills 05/13/2024 Patient was seen in room 325 . Patient is alert, awake, oriented to time place person. Patient is currently asymptomatic and he is able to walk around with no weakness, shortness of breath. Patient's labs show WBC 3.7 And hemoglobin 8.6 and chemistries show creatinine 1.9, BUN 15. Patient is hemodynamically stable and will be discharged once the stool occult blood comes negative. We will continue to monitor hemoglobin. REVIEW OF SYSTEMS CONSTITUTIONAL: Denies fevers, chills, or night sweats. No unintentional weight loss reported. NEUROLOGICAL: Denies headache, amaurosis fugax, motor weakness, sensory deficit, vertigo/spinning sensation, gait abnormalities, or tremors. ENT: No hearing loss, otalgia, otorrhea, rhinitis, rhinorrhea, hoarseness, or sore throat. CARDIOVASCULAR: Denies any exertional angina, dyspnea on exertion, orthopnea, paroxysmal nocturnal dyspnea, palpitations, life-threatening arrhythmias, claudication. PULMONARY: Denies any shortness of breath, cough, phlegm/sputum, hemoptysis, pleuritic chest pain. SLEEP: Denies morning headaches, daytime somnolence or napping. Denies difficulty falling asleep, staying asleep, waking from sleep. Denies knowledge of snoring. GASTROINTESTINAL: Denies any type of dysphagia to either liquids or solids. De nies nausea, vomiting, pyrosis, early satiety, abdominal pain, diarrhea, constipation, or changes in stool consistency or caliber. Denies coffee-ground emesis, hematemesis, hematochezia, or melanotic stools. GENITOURINARY: Denies frequency, urgency, nocturia, hematuria or incontinence (Storage/Irritative symptoms.) Low urinary stream, straining to void, urinary intermittency or hesitancy, splitting of the voiding stream, terminal dribbling. ENDOCRINOLOGIC: Denies polyuria, polydipsia, polyphagia or heat/cold intolerances. HEMATOLOGIC: Denies thrombophilia/previous clots, or coagulopathy/bleeding disorders. ONCOLOGIC: Denies personal history of malignancy. DERMATOLOGIC: Denies rashes or pruritus. PSYCHIATRIC: Denies any suicidal or homicidal ideation. Denies hallucinations. PHYSICAL EXAM GENERAL APPEARANCE: The patient is awake, alert, and oriented, in no acute cardiopulmonary distress. NEUROLOGICAL: Cranial nerves II-XII grossly intact. Motor is 5/5 in bilateral upper and lower extremities proximal to distal. No sensory deficits. HEENT: Face is symmetric. Pupils are equal and reactive. Extraocular movements are intact. NECK: Supple. No JVD. No thyromegaly. No submental, submandibular, pre- /postauricular, occipital or supraclavicular lymphadenopathy. CHEST: Normal chest expansion. No Telemetry. LUNGS: Absence of any rales, rhonchi or any wheezing. CARDIOVASCULAR: Regular. S1 and S2 normal. No appreciable rubs, murmurs or gallops. ABDOMEN: Soft, nontender, and nondistended. There is no rebound, voluntary guarding, or rigidity. : Deferred. No Sepulveda. EXTREMITIES: Non-edematous and not cyanotic. No clubbing. Good capillary refill. SKIN: No skin breakdown. Vital Signs (last 8hr) Date Time Temp Pulse Resp B/P (MAP) Pulse Ox O2 Delivery O2 Flow Rate FiO2 05/13/24 12:00 97.9 88 20 145/90 97 Room Air 05/13/24 08:25 97 Room Air* 0 21 05/13/24 08:00 97.9 82 18 158/83 97 Room Air LABS: Laboratory: Test 05/13/24 14:45 05/13/24 11:22 05/13/24 03:09 05/12/24 04:46 Range/Units Hemoglobin 8.6 L 14.0-18.0 g/dL Hematocrit 25.8 L 42-54 % Whole Blood Glucose 103 70-110 MG/DL White Blood Count 3.7 L 4.8-10.8 K/uL Red Blood Count 2.61 #L 4.50-6.20 MIL/uL Mean Corpuscular Volume 93.5 79-99 fL Mean Corpuscular Hemoglobin 31.8 27.0-33.0 pg Mean Corpuscular Hemoglobin Concent 34.0 32.0-36.0 g/dL Red Cell Distribution Width 16.8 H 11.0-15.5 % Platelet Count 63 L 130-400 K/uL Mean Platelet Volume 9.8 7.5-10.5 fL Nucleated Red Blood Cells 0.0 0.0-0.19 % Platelet Morphology Comment DECREASED Sodium Level 141 136-145 mmol/L Potassium Level 3.5 3.5-5.1 mmol/L Chloride Level 112 H 101-111 mmol/L Carbon Dioxide Level 25 21-32 mmol/L Blood Urea Nitrogen 15 7-18 mg/dL Creatinine 1.9 H 0.5-1.3 mg/dL Glomerular Filtration Rate Calc 38 >90 mL/min Random Glucose 89 70-105 mg/dL Total Calcium 7.1 L 8.5-10.1 mg/dL Total Bilirubin 0.4 0.2-1.0 mg/dL Aspartate Amino Transf (AST/SGOT) 26 10-37 U/L Alanine Aminotransferase (ALT/SGPT) 83 H 12-78 U/L Alkaline Phosphatase 133 50-136 U/L Total Protein 5.5 L 6.0-8.3 g/dL Albumin 1.6 L 3.5-5.0 g/dL Immature Granulocyte % (Auto) 0.3 0-1 % Neutrophils (%) (Auto) 52.5 40.0-77.0 % Lymphocytes (%) (Auto) 34.9 21.0-51.0 % Monocytes (%) (Auto) 8.6 3.0-13.0 % Eosinophils (%) (Auto) 3.7 0.0-8.0 % Basophils (%) (Auto) 0.0 0.0-5.0 % Neutrophils # (Auto) 1.8 1.8-7.7 K/uL Lymphocytes # (Auto) 1.2 1.0-4.8 K/uL Monocytes # (Auto) 0.3 0.1-1.0 K/uL Eosinophils # (Auto) 0.13 0.00-0.70 K/uL Basophils # (Auto) 0.00 0.00-0.20 K/uL Absolute Immature Granulocyte (auto 0.01 0-1 K/uL Test 05/12/24 03:46 05/11/24 20:06 Range/Units Phosphorus Level 2.6 2.5-4.9 mg/dL Bedside Glucose Comment Notified Nurse Current Medications Medications (Trade) Dose Ordered Sig/Dominguez Route PRN Reason Start Time Stop Time Status Last Admin Dose Admin Acetaminophen (TYLenol 325MG TAB) 650 mg Q6H PRN PO TEMPERATURE GREATER THAN 101.5 05/09/24 04:00 06/08/24 03:59 Amlodipine Besylate (NorvASC 5MG TAB) 10 mg DAILY PO 05/13/24 09:00 06/12/24 08:59 05/13/24 09:15 10 MG Dextrose (D50w) 50 ml AD PRN IV HYPOGLYCEMIA PROTOCOL 05/09/24 04:00 06/08/24 03:59 Dextrose/Sodium Chloride 1,000 ml @ 100 mls/hr Q10H IV 05/09/24 03:00 05/13/24 14:45 DC 05/13/24 08:26 100 MLS/HR Glucagon (Glucagon 1mg Kit) 1 mg AD PRN IM HYPOGLYCEMIA PROTOCOL 05/09/24 04:00 06/08/24 03:59 Heparin Sodium (Porcine) (HEParin 5,000 UNIT VIAL) 5,000 unit BID SQ 05/09/24 09:00 05/10/24 22:09 DC 05/09/24 20:09 5,000 UNIT Hydralazine HCl (APRESOLine 20MG INJ) 10 mg Q6H PRN IV For:SBP above 160;DBP above 90 05/09/24 04:00 06/08/24 03:59 Magnesium Sulfate 50 ml @ 0 mls/hr PROTOCOL PRN IV MAGNESIUM PROTOCOL 05/10/24 16:00 06/09/24 15:59 05/10/24 16:04 0 MLS/HR Morphine Sulfate (morPHINE 2MG SYG) 2 mg Q4H PRN IVP SEVERE PAIN (7-10) 05/09/24 04:00 05/16/24 03:59 Ondansetron HCl (zoFRAN 4MG INJ) 4 mg Q6H PRN IV NAUSEA/VOMITING 05/09/24 04:00 06/08/24 03:59 Pantoprazole Sodium (PROTonix 40MG TAB) 40 mg DAILY PO 05/09/24 09:00 06/08/24 08:59 05/13/24 08:26 40 MG Potassium Chloride 100 ml @ 100 mls/hr AD PRN IV POTASSIUM PROTOCOL 05/10/24 16:00 06/09/24 15:59 Potassium Chloride (K-Dur/Klor-Con 20meq) 20 meq AD PRN PO POTASSIUM PROTOCOL 05/10/24 16:00 06/09/24 15:59 05/12/24 18:24 20 MEQ Potassium Chloride (KCl 10% Elixir 20meq/15ml) 20 meq AD PRN PO POTASSIUM PROTOCOL 05/10/24 16:00 06/09/24 15:59 Thiamine HCl (Vitamin B-1) 100 mg DAILY IVP 05/09/24 11:00 06/08/24 10:59 05/13/24 08:25 100 MG Vitamin B Complex/ Vit C/Folic Acid (Nephrovite Tablet) 1 cap DAILY PO 05/10/24 09:00 06/09/24 08:59 05/13/24 08:26 1 CAP DIAGNOSTICS / RADIOLOGY: [ ] ASSESSMENT: Hypertension POA Multiple myeloma POA AFib POA Restless leg POA Anxiety POA Pancytopenia due to chemotherapy POA Acute tubular necrosis POA Moderate malnutrition POA History of hemodialysis Symptomatic anemia POA Hypoalbuminemia POA hypothyroidism POA PLAN: Discharge the patient once stool occult blood is negative and hemoglobin is stable. Advice him to follow up with Oncology as outpatient Monitor hemoglobin a.m. labs Replete PRBCs if hemoglobin less than 7 Follow nephrology recommendations DVT prophylaxis with SCDs GI prophylaxis with Protonix ATTESTATION BY PHYSICIAN I have seen and examined the patient. I reviewed the documentation, medical decision making, and treatment plan as noted by the resident provider above. I a gree with the findings and plan of care. Juan Brothers MD, KEERTI K MD May 13, 2024 15:51
[2024-05-13 20:46] LABS: HEMATOCRIT 27.4 % (42-54)
[2024-05-14] VITALS: BP 138/83; PULSE 82; RESP 16; TEMP 98.7
[2024-05-14 04:00] VITALS: BP 142/70; PULSE 76; RESP 16; TEMP 98.5
[2024-05-14 06:40] LABS: HEMATOCRIT 23.7 % (42-54); MEAN CORPUSCULAR HEMOGLOBIN 31.6 pg (27.0-33.0); MEAN CORPUSCULAR HGB CONC 33.8 g/dL (32.0-36.0); MEAN CORPUSCULAR VOLUME 93.7 fL (79-99); RED BLOOD CELL COUNT(AUTO) 2.53 MIL/uL (4.50-6.20); RED CELL DISTRIBUTION WIDTH 16.6 % (11.0-15.5); WHITE BLOOD COUNT (AUTO) 3.5 K/uL (4.8-10.8)
[2024-05-14 06:50] LABS: CREATININE 1.9 mg/dL (0.5-1.3); POTASSIUM 3.6 mmol/L (3.5-5.1)
[2024-05-14 07:36] LABS: MAGNESIUM 1.1 mg/dL (1.80-2.40); PHOSPHORUS 2.7 mg/dL (2.5-4.9)
[2024-05-14 08:00] VITALS: BP 147/76; PULSE 73; RESP 20; TEMP 97.9
[2024-05-14 08:11] VITALS: O2SAT 96
[2024-05-14 12:00] VITALS: BP 136/68; PULSE 76; RESP 21; TEMP 98.4
[2024-05-14 12:05] LABS: HEMATOCRIT 24.4 % (42-54)
[2024-05-14 15:11] LABS: HEMATOCRIT 24.3 % (42-54)
--- NOTE | 2024-05-14 15:34 | PN ---
NEPHROLOGY PROGRESS NOTE Date/Time Patient Seen: May 14, 2024 Reason for Consultation: 15:33 SUBJECTIVE: This is a 68-year-old male with a past medical history of multiple myeloma on p.o. chemotherapy followed by Dr. Barrientos, restless legs syndrome, heart disease with a defibrillator, atrial fibrillation on anticoagulation, hypertension, chronic kidney disease, diabetes mellitus type 2, anemia and anxiety. He presented to emergency room from [facility] with complaints of shortness of breath and hypoglycemia. He has a recent hospitalization in [facility] for similar concern and was discharged on 05/02/24. Previous on external records were reviewed in detail Glucose levels have remained stable. Hypoglycemia protocol in place. He was noted to have elevated BUN/creatinine. We are consulted for renal failure. Renal function electrolytes are stable. Pending stool occult blood. He was seen in the medical floor, in no acute distress REVIEW OF SYSTEMS: GENERAL: Positive for generalized weakness and shortness of breath NEUROLOGIC: Negative for any blurry vision, blind spots, double vision, facial asymmetry, dysphagia, dysarthria, hemiparesis, hemisensory deficits, vertigo, ataxia. HEENT: Negative for any head trauma, neck trauma, neck stiffness, photophobia, phonophobia, sinusitis, rhinitis. CARDIAC: Negative for any chest pain, dyspnea on exertion, paroxysmal nocturnal dyspnea, peripheral edema. PULMONARY: Negative for any shortness of breath, wheezing, COPD, or TB exposure. GASTROINTESTINAL: Negative for any abdominal pain, nausea, vomiting, bright red blood per rectum, melena. GENITOURINARY: Negative for any dysuria, hematuria, incontinence. INTEGUMENTARY: Negative for any rashes, cuts, insect bites. RHEUMATOLOGIC: Negative for any joint pains, photosensitive rashes, history of vasculitis or kidney problems. HEMATOLOGIC: Negative for any abnormal bruising, frequent infections or bleeding. PHYSICAL EXAM: GENERAL: Alert and oriented x 3. No acute distress. Well-nourished. EYES: EOMI. Anicteric. HENT: Moist mucous membranes. No scleral icterus. No cervical lymphadenopathy. LUNGS: Clear to auscultation bilaterally. No accessory muscle use. CARDIOVASCULAR: Regular rate and rhythm. No murmur. No JVD. ABDOMEN: Soft, non-tender and non-distended. No palpable masses. EXTREMITIES: No edema. Non-tender. SKIN: No rashes or lesions. Warm. NEUROLOGIC: No focal neurological deficits. CN II-XII grossly intact, but not individually tested. PSYCHIATRIC: Cooperative. Appropriate mood and affect. LABORATORY: [ ] Hematology Labs: Test 05/14/24 14:38 05/14/24 06:16 05/13/24 03:09 Range/Units Hemoglobin 8.2 L 14.0-18.0 g/dL Hematocrit 24.3 L 42-54 % White Blood Count 3.5 L 4.8-10.8 K/uL Red Blood Count 2.53 L 4.50-6.20 MIL/uL Mean Corpuscular Volume 93.7 79-99 fL Mean Corpuscular Hemoglobin 31.6 27.0-33.0 pg Mean Corpuscular Hemoglobin Concent 33.8 32.0-36.0 g/dL Red Cell Distribution Width 16.6 H 11.0-15.5 % Platelet Count 64 L 130-400 K/uL Mean Platelet Volume 10.4 7.5-10.5 fL Nucleated Red Blood Cells 0.0 0.0-0.19 % Platelet Morphology Comment DECREASED Chemistry Labs: Test 05/14/24 11:20 05/14/24 06:16 05/13/24 03:09 Range/Units Whole Blood Glucose 125 #H 70-110 MG/DL Sodium Level 143 136-145 mmol/L Potassium Level 3.6 3.5-5.1 mmol/L Chloride Level 110 101-111 mmol/L Carbon Dioxide Level 25 21-32 mmol/L Blood Urea Nitrogen 13 7-18 mg/dL Creatinine 1.9 H 0.5-1.3 mg/dL Glomerular Filtration Rate Calc 38 >90 mL/min Random Glucose 81 70-105 mg/dL Total Calcium 7.2 L 8.5-10.1 mg/dL Phosphorus Level 2.7 2.5-4.9 mg/dL Magnesium Level 1.10 L 1.80-2.40 mg/dL Total Bilirubin 0.4 0.2-1.0 mg/dL Aspartate Amino Transf (AST/SGOT) 26 10-37 U/L Alanine Aminotransferase (ALT/SGPT) 83 H 12-78 U/L Alkaline Phosphatase 133 50-136 U/L Total Protein 5.5 L 6.0-8.3 g/dL Albumin 1.6 L 3.5-5.0 g/dL DIAGNOSTICS / RADIOLOGY: REASON: SOB, ORDERING PHYSICIAN: ASH ANDREW MD PROCEDURE: CXR1VW - CHEST 1VW CHEST 1VW HISTORY: Shortness of breath COMPARISON: None FINDINGS: A frontal projection of the chest was obtained. No acute pulmonary infiltrates is seen. The heart is normal in size. Degenerative changes are seen. Prominent interstitial markings are seen. No evidence of aortic calcification is seen. IMPRESSION: 1. No acute pulmonary infiltrate is seen. DICTATED BY: DARREN MILAN MD DATE: 05/09/24 9222 ASSESSMENT: Acute on chronic renal failure Hypoglycemia Anemia Hyponatremia Hypokalemia Multiple myeloma on chemotherapy Thrombocytopenia PLAN: Labs, diagnostic, radiologic exams reviewed and interpreted by myself and supervising physician. We have reviewed external records in detail Require close monitoring of renal function and electrolytes Order CBC, CMP, and electrolytes in am Continue with antibiotics Renal diabetic diet BiPAP as necessary, for respiratory distress Monitor blood pressure adjust medication doses as needed Avoid hypotensive episodes May use Dilaudid 0.5 mg IV every 6 hours as needed for severe pain Monitor blood sugars Strict intake, output, and daily weight should be monitored Please renally adjust medications Avoid nephrotoxic and nonsteroidal drugs Avoid contrast if possible Will continue to monitor renal function, anemia, electrolytes Treatment plan discussed with patient Questions were answered We have discussed with the other team physicians in detail about the care plan We will continue to monitor the patient closely ATTESTATION BY PHYSICIAN I have seen and examined the patient. I reviewed the documentation, medical decision making, and treatment plan as noted by the mid-level provider above. I agree with the findings and plan of care. ESTEFANI KRAUS MD, [facility] May 14, 2024 15:34
[2024-05-14 16:00] VITALS: BP 143/85; PULSE 81; RESP 20; TEMP 98.1
--- NOTE | 2024-05-14 16:19 | DS ---
Discharge Summary Hospital Course Summary: Mr. Villagomez is a 68-year-old male that was seen and examined today on 05/09/2024. Patient is a good historian of personal health. Patient's Andrey Ho is at bedside Patient states that he came to emergency department with a chief complaint of shortness of breath. Onset was 05/08/2024 at 5:30 p.m.. Location is to lungs. Duration is on and off. Character is described as, "like there was air missing in my chest."There was no alleviating factors. There was no aggravating factors. Patient denies any associated chest pain. Patient reports associated weakness. Today in the emergency department potassium 3.3, glucose 49 mg/dL, creatinine 2.9, BUN 48, GFR 23. Emergency room physician recommended that patient be admitted with a diagnosis of hypoglycemic episode 05/10/24 Patient seen/care discussed with RN/Creatinine stabilizing 05/11/24 patient was seen and examined. Case discussed with the RN usman Joseph phrology help 05/12/24 patient was seen and examined. Case discussed with the RN. He denies any complaints including shortness breath chest pain fever or chills 05/13/2024 Patient was seen in room 325 . Patient is alert, awake, oriented to time place person. Patient is currently asymptomatic and he is able to walk around with no weakness, shortness of breath. Patient's labs show WBC 3.7 And hemoglobin 8.6 and chemistries show creatinine 1.9, BUN 15. Patient is hemodynamically stable and hemoglobin has been stable . 05/14/2024 - Monitoring the hemoglobin of the patient continues to be stable. Patient is deemed stable to be discharged and advised to follow up with primary care, Oncology and Endocrine. Patient had elevated TSH and is advised to follow up with Endocrine on discharge . Patient continues to be on the low side of hemoglobin along with other cytopenias and is advised to follow up with Oncology regularly. Stitch Burnisher(s): Nephrology Procedure(s): PATIENT: LEANDRA VILLAGOMEZ MR#: [id number] : 1955 SEX: M AGE: 68 LOCATION: [facility] ORDER 0113 STATUS: ADM IN REPORT#: [id number] SERVICE 0112 REASON: SOB, ORDERING PHYSICIAN: ASH ANDREW MD PROCEDURE: CXR1VW - CHEST 1VW CHEST 1VW HISTORY: Shortness of breath COMPARISON: None FINDINGS: A frontal projection of the chest was obtained. No acute pulmonary infiltrates is seen. The heart is normal in size. Degenerative changes are seen. Prominent interstitial markings are seen. No evidence of aortic calcification is seen. IMPRESSION: 1. No acute pulmonary infiltrate is seen. DICTATED BY: DARREN MILAN MD DATE: 05/09/241622 ELECTRONICALLY SIGNED BY: DARREN MILAN MD DATE: 05/09/241625 Assessment/Plan: ASSESSMENT: Hypertension POA Multiple myeloma POA AFib POA Restless leg POA Anxiety POA Pancytopenia due to chemotherapy POA Acute tubular necrosis POA Moderate malnutrition POA History of hemodialysis Symptomatic anemia POA Hypoalbuminemia POA hypothyroidism POA Discharge Instructions: Take all medications as prescribed Follow iron, erythropoietin or blood transfusion recommendations for anemia from the oncology Check blood glucose regularly especially if experienced symptoms like sweating, shakiness or confusion or dizziness Keep fast acting carbohydrates such as glucose tablets, juice, candy readily available If frequent hypoglycemia persists, discuss medication adjustments with your primary doctor Eat small, frequent meals with complex carbs and proteins to maintain stable blood sugar Stay hydrated to prevent complications like hyperviscosity syndrome Consider iron rich foods or supplements if instructed by your provider Avoid excessive physical exertion if feeling fatigued or dizzy Standard slowly to prevent dizziness from orthostatic hypotension Reports worsening fatigue, shortness of breath, or palpitations Wash hands frequently and avoid sick contacts Monitor for fever and seek medical attention if present Avoid NSAIDs and has been unless prescribed due to bleeding risk Use a soft toothbrush or electric razor to reduce bleeding risk Follow renal diet Home Medications: Reported Medications Budesonide (Pulmicort 0.25MG/2Ml) 0.25 Mg/2 Ml Vial.neb, 1 VIAL NEB BID for 30 Days, #120 ML 0 Refills 05/10/24 Ammonium Lactate (Ammonium Lactate) 12 % Cream..g., 1 APPL TP BID for 30 Days, #385 GM 0 Refills 05/10/24 Amlodipine Besylate (Amlodipine Besylate) 10 Mg Tablet, 1 TAB PO DAILY for 30 Days, #30 TAB 0 Refills 05/10/24 Cholecalciferol (Vitamin D3) (Vitamin D3) 25 Mcg (1000 Unit) Tablet, 1 TAB PO DAILY for 30 Days, #30 TAB 0 Refills 05/10/24 Pantoprazole Sodium (Pantoprazole Sodium) 40 Mg Tablet.dr, 1 TAB PO DAILY for 30 Days, #30 TAB 0 Refills 05/10/24 Furosemide (Lasix 40Mg Tab) 40 Mg Tablet, 1 TAB PO DAILY for 30 Days, #30 TAB 0 Refills 05/10/24 Continued Medications: Amlodipine Besylate (Amlodipine Besylate) 10 Mg Tablet 1 TAB PO DAILY for 30 Days, #30 TAB 0 Refills Ammonium Lactate (Ammonium Lactate) 12 % Cream..g. 1 APPL TP BID for 30 Days, #385 GM 0 Refills Budesonide (Pulmicort 0.25MG/2Ml) 0.25 Mg/2 Ml Vial.neb 1 VIAL NEB BID for 30 Days, #120 ML 0 Refills Cholecalciferol (Vitamin D3) (Vitamin D3) 25 Mcg (1000 Unit) Tablet 1 TAB PO DAILY for 30 Days, #30 TAB 0 Refills Furosemide (Lasix 40Mg Tab) 40 Mg Tablet 1 TAB PO DAILY for 30 Days, #30 TAB 0 Refills Pantoprazole Sodium (Pantoprazole Sodium) 40 Mg Tablet. 1 TAB PO DAILY for 30 Days, #30 TAB 0 Refills Time spent arranging discharge: 1-30 minutes ATTESTATION BY PHYSICIAN I have seen and examined the patient. I reviewed the documentation, medical decision making, and treatment plan as noted by the resident provider above. I agree with the findings and plan of care. Juan Brothers MD, KEERTI K MD May 14, 2024 16:19
--- NOTE | 2024-05-14 18:09 | NUR ---
DISCHARGE PERIPHERAL IV DISCONTINUED DISCHARGE EDUCATION, DISCHARGE INSTRUCTIONS, AND MEDICATION LIST PROVIDED TO FAMILY PATIENT AND FAMILY AWARE OF FOLLOW UP APPOINTMENTS PATIENT AND FAMILY AWARE OF MEDICATION LIST AND TO CONTINUE TAKING MEDICATIONS DIRECTED. ALL QUESTIONS ANSWERED.
== END 2024-05-14 18:15 | disposition home or self-care (01) | DRG 638 ==
LOC: EDH 01:01 → EDHIP 03:34 → 3DH 04:18
PROVIDERS: ADMIT Internal Medicine; ATTEND Internal Medicine
PROC: 30233N1 Transfusion of Nonautologous Red Blood Cells into Peripheral Vein, Percutaneous Approach (ICD-10-PCS; principal; 2024-05-12)
DX: E11.649 Type 2 diabetes mellitus with hypoglycemia without coma (principal); C90.00 Multiple myeloma not having achieved remission; E87.1 Hypo-osmolality and hyponatremia; E44.0 Moderate protein-calorie malnutrition; D61.818 Other pancytopenia; N17.0 Acute kidney failure with tubular necrosis; N18.9 Chronic kidney disease, unspecified; I48.91 Unspecified atrial fibrillation; G25.81 Restless legs syndrome; E03.9 Hypothyroidism, unspecified; E11.22 Type 2 diabetes mellitus with diabetic chronic kidney disease; E87.6 Hypokalemia; D69.6 Thrombocytopenia, unspecified; E88.09 Other disorders of plasma-protein metabolism, not elsewhere classified; F41.9 Anxiety disorder, unspecified; D63.1 Anemia in chronic kidney disease; I12.9 Hypertensive chronic kidney disease with stage 1 through stage 4 chronic kidney disease, or unspecified chronic kidney disease; Z79.01 Long term (current) use of anticoagulants; Z87.891 Personal history of nicotine dependence; Z68.26 Body mass index [BMI] 26.0-26.9, adult; Z79.899 Other long term (current) drug therapy
CPT/HCPCS: 36415; 36430; 71045; 80048; 80053; 81001; 82570; 82948; 83036; 83540; 83550; 83615; 83735; 83880; 83935; 84100; 84300; 84443; 84484; 85014; 85018; 85025; 85027; 85045; 86850; 86900; 86901; 86923; 96374; 99285; G0378; J1644; J3411; J3475; J7042; J7070; P9016

== ENCOUNTER 2024-11-13 12:37 | Emergency (ER) | payer OTHER ==
[~2024-11-13] VITALS: Ht 172.7 cm; Wt 72.6 kg
[~2024-11-13 12:37] MED LIST: ACYC-429 PO; AMLO-258 PO; BUDE0.256 NEB; CHLO25TA3 PO; CHOL-34 PO; FURO40TA7 PO; IRON150C5 PO; PANT40TA54 PO
[2024-11-13 13:09] LABS: IMMATURE GRANULOCYTE ABSOLUTE 0.01 K/uL (0-1); NUCLEATED RED BLOOD CELLS 0.0 % (0.0-0.19); PLATELET COUNT (AUTO) 143 K/uL (130-400); RED BLOOD CELL COUNT(AUTO) 4.76 MIL/uL (4.50-6.20); RED CELL DISTRIBUTION WIDTH 13.5 % (11.0-15.5); WHITE BLOOD COUNT (AUTO) 5.9 K/uL (4.8-10.8)
[2024-11-13 13:15] LABS: CREATININE 2.9 mg/dL (0.5-1.3); GLOMERULAR FILTR. RATE CALC 23 mL/min (>90); GLUCOSE,RANDOM 115 mg/dL (70-105); SODIUM SERUM 136 mmol/L (136-145); UREA NITROGEN, BLOOD 43 mg/dL (7-18)
[2024-11-13 13:16] LABS: ALCOHOL, BLOOD < 3 mg/dL (0-10)
[2024-11-13 13:26] LABS: SARS-CoV-2, RNA, NAAT POSITIVE SARS CoV-2 (NEGATIVE)
[2024-11-13 13:29] LABS: INFLUENZA TYPE A Negative For Type A (NEGATIVE); INFLUENZA TYPE B Negative For Type B (NEGATIVE)
--- NOTE | 2024-11-13 13:40 | EKG ---
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
[2024-11-13] MEDS: 0.9%NACL 1000ML 1,000 ML IV STA (13:45)
--- NOTE | 2024-11-13 14:18 | HMCIMG ---
EXAM: CR Chest, 1 View. CLINICAL HISTORY: [facility] COMPARISON: None provided. FINDINGS: LUNGS: There is no mass, infiltrate, or acute pulmonary abnormality. PLEURAL SPACES: No pleural effusion or pneumothorax. MEDIASTINUM: The cardiomediastinal silhouette is within normal limits. BONES: No aggressive appearing osseous lesion seen. IMPRESSION: No acute cardiopulmonary pathology is evident. /[place]
[2024-11-13 14:45] LABS: APPEARANCE,URINE CLEAR (CLEAR); GLUCOSE, URINE (UA) NEGATIVE (NEGATIVE); LEUKOCYTE ESTERASE ,URINE NEGATIVE Leu/uL (NEGATIVE); NITRATE,URINE NEGATIVE (NEGATIVE); OCCULT BLOOD,URINE NEGATIVE (NEGATIVE)
[2024-11-13 14:46] LABS: ADD UA MICROSCOPIC YES
[2024-11-13 14:51] LABS: AMPHET/METH SCREEN,URINE NEGATIVE (NEGATIVE); BARBITURATE SCREEN, URINE NEGATIVE (NEGATIVE); CANNABINOID SCREEN,URINE NEGATIVE (NEGATIVE); COCAINE SCREEN,URINE NEGATIVE (NEGATIVE)
[2024-11-13 14:53] LABS: SQUAMOUS EPITHELIAL CELL,UR RARE /HPF (0-2)
[2024-11-13] MEDS ORDERED: MOLN200C PO (14:58)
--- NOTE | 2024-11-13 15:03 | ERN ---
ED Note History of Present Illness Stated Complaint: WEAKNESS Chief Complaint: Fatigue Time Seen by MD: 12:38 Time Seen by Midlevel: 12:40 Dictation: 69-year-old male with a history of hypertension and CKD not on dialysis coming in with complaints of cough and generalized body weakness for the last couple of weeks. Denies having any nausea, vomiting, diarrhea, dysuria, chest pain, chest discomfort, shortness a breath. Allergies: Coded Allergies: No Known Drug Allergies (Unverified Allergy, Unknown, 05/09/24) Home Meds Active Scripts Molnupiravir (Molnupiravir (Eua)) 200 Mg Capsule, 4 CAP PO BID for 5 Days, #40 CAP 0 Refills Prov:JESUS CLINTON GAS REVERSER 11/13/24 Reported Medications Amlodipine Besylate (Amlodipine Besylate) 10 Mg Tablet, 1 TAB PO DAILY for 30 Days, #30 TAB 0 Refills 08/17/24 Acyclovir (Acyclovir) 400 Mg Tablet, 1 TAB PO BID for 30 Days, #60 TAB 0 Refills 08/17/24 Chlorthalidone (Chlorthalidone) 25 Mg Tablet, 1 TAB PO DAILY for 30 Days, #30 TAB 0 Refills 08/17/24 Iron Polysaccharides Complex (Ferrex 150) 150 Mg Iron Capsule, 1 CAP PO DAILY for 30 Days, #30 CAP 0 Refills 08/17/24 Budesonide (Pulmicort 0.25MG/2Ml) 0.25 Mg/2 Ml Vial.neb, 1 VIAL NEB BID for 30 Days, #120 ML 0 Refills 05/10/24 Amlodipine Besylate (Amlodipine Besylate) 10 Mg Tablet, 1 TAB PO DAILY for 30 Days, #30 TAB 0 Refills 05/10/24 Cholecalciferol (Vitamin D3) (Vitamin D3) 25 Mcg (1000 Unit) Tablet, 1 TAB PO DAILY for 30 Days, #30 TAB 0 Refills 05/10/24 Pantoprazole Sodium (Pantoprazole Sodium) 40 Mg Tablet.dr, 1 TAB PO DAILY for 30 Days, #30 TAB 0 Refills 05/10/24 Furosemide (Lasix 40Mg Tab) 40 Mg Tablet, 1 TAB PO DAILY for 30 Days, #30 TAB 0 Refills 05/10/24 Past Medical History Past Medical History: Cancer, Renal Disese, Other Additional Past Medical Hx: " BONE CANCER" Surgical History: None Social History: Negative, Lives with family Review of System Dictation Constitutional: Generalized body weakness and body aches Eyes: Negative for injury, pain,redness, and discharge ENT: Negative for injury,pain or swelling Cardiovascular: Negative for chest pain, palpitations, and edema Respiratory: Positive for cough Abdomen/GI: Negative for abdominal pain, nausea, vomiting, diarrhea, and constipation Back: Negative for injury and pain : Negative for injury, bleeding and discharge MS/Extremity: Negative for injury and deformity Skin: Negative for rash, and discoloration Neuro: Negative for headache, weakness, numbness, tingling, and seizure Psych: Negative for suicide ideation, homicidal ideation, and hallucinations Review of Systems: was completed Initial Vital Sign VS Vital Signs Date Time Temp Pulse Resp B/P (MAP) Pulse Ox O2 Delivery O2 Flow Rate FiO2 11/13/24 12:38 97.9 59 18 160/84 97 Room Air 11/13/24 13:52 0 21 Physical Exam Dictation General: awake, alert, NAD Head/Face: Normocephalic, atraumatic Eyes: PERRL, EOMI, vision at baseline ENT: oral cavity clear, TMs clear, no signs of infection Neck: Trachea midline, supple, no nuchal rigidity Cardiovascular: RRR, normal S1/S2, No MRGs, no JVD Respiratory: CTAB, no respiratory distress, No rales or wheezes Abdomen: Soft, non-tender, non-distended, normal bowel sounds, no guarding or rebound. Skin: Warm, dry, normal turgor, no rash MS/Extremity: Pulses equal, no cyanosis, neurovascular intact, FROM Neuro: COAx4, GCS 15, strength 5/5, CN 2-12 intact, normal cerebellar exam, normal gait, Psych: Normal behavior, mood, and affect normal Results (Laboratory/Radiology) Laboratory/Radiology Laboratory Tests Test 11/13/24 12:52 11/13/24 13:00 11/13/24 14:10 White Blood Count 5.9 K/uL (4.8-10.8) Red Blood Count 4.76 MIL/uL (4.50-6.20) Hemoglobin 15.7 g/dL (14.0-18.0) Hematocrit 44.1 % (42-54) Mean Corpuscular Volume 92.6 fL (79-99) Mean Corpuscular Hemoglobin 33.0 pg (27.0-33.0) Mean Corpuscular Hemoglobin Concent 35.6 g/dL (32.0-36.0) Red Cell Distribution Width 13.5 % (11.0-15.5) Platelet Count 143 K/uL (130-400) Mean Platelet Volume 10.6 fL (7.5-10.5) H Immature Granulocyte % (Auto) 0.2 % (0-1) Neutrophils (%) (Auto) 59.1 % (40.0-77.0) Lymphocytes (%) (Auto) 31.1 % (21.0-51.0) Monocytes (%) (Auto) 8.1 % (3.0-13.0) Eosinophils (%) (Auto) 1.2 % (0.0-8.0) Basophils (%) (Auto) 0.3 % (0.0-5.0) Neutrophils # (Auto) 3.5 K/uL (1.8-7.7) Lymphocytes # (Auto) 1.8 K/uL (1.0-4.8) Monocytes # (Auto) 0.5 K/uL (0.1-1.0) Eosinophils # (Auto) 0.07 K/uL (0.00-0.70) Basophils # (Auto) 0.02 K/uL (0.00-0.20) Absolute Immature Granulocyte (auto 0.01 K/uL (0-1) Nucleated Red Blood Cells 0.0 % (0.0-0.19) Sodium Level 136 mmol/L (136-145) Potassium Level 3.4 mmol/L (3.5-5.1) L Chloride Level 97 mmol/L (101-111) L Carbon Dioxide Level 28 mmol/L (21-32) Blood Urea Nitrogen 43 mg/dL (7-18) H Creatinine 2.9 mg/dL (0.5-1.3) H Glomerular Filtration Rate Calc 23 mL/min (>90) Random Glucose 115 mg/dL (70-105) H Total Calcium 8.5 mg/dL (8.5-10.1) Troponin I High Sensitivity 15 ng/L (4-75) Serum Alcohol < 3 mg/dL (0-10) Influenza Type A Antigen Negative For Type A Influenza Type B Antigen Negative For Type B SARS-CoV-2, RNA, NAAT POSITIVE SARS CoV-2 Urine Color YELLOW (YELLOW) Urine Appearance CLEAR (CLEAR) Urine pH 6.0 (5.0-8.0) Urine Specific [place] 1.017 (1.001-1.031) Urine Protein 300 mg/dL (NEGATIVE) H Urine Glucose (UA) NEGATIVE mg/dL (NEGATIVE) Urine Ketones NEGATIVE mg/dL (NEGATIVE) Urine Occult Blood NEGATIVE (NEGATIVE) Urine Nitrate NEGATIVE (NEGATIVE) Urine Bilirubin NEGATIVE mg/dL (NEGATIVE) Urine Urobilinogen 0.2 mg/dL (0.2-1.0) Urine Leukocyte Esterase NEGATIVE Jessy/uL Urine RBC 2-5 /HPF (0-1) H Urine WBC 0-1 /HPF (0-1) Urine Squamous Epithelial Cells RARE /HPF (0-2) Urine Bacteria None /HPF (None Seen) Urine Opiates Screen NEGATIVE (NEGATIVE) Urine Barbiturates Screen NEGATIVE (NEGATIVE) Urine Phencyclidine Screen NEGATIVE (NEGATIVE) Urine Amphetamines Screen NEGATIVE (NEGATIVE) Urine Benzodiazepines Screen NEGATIVE (NEGATIVE) Urine Cocaine Screen NEGATIVE (NEGATIVE) Urine Marijuana (THC) Screen NEGATIVE (NEGATIVE) Labs Reviewed?: Yes EKG Comment: EKGs did not 1336, prolonged QT interval QT 536, qtcb 509. Rate 54, sinus rhythm, no STEMI interpreted by ER MD X-RAY Comment: [address] [address] IMAGING REPORT Signed PATIENT: LEANDRA CRUZ MR#: [id number] : 1955 SEX: M AGE: 69 LOCATION: ED ORDER 43 STATUS: REG ER REPORT#: [id number] SERVICE 41 REASON: w ORDERING PHYSICIAN: JESUS CLINTON NP PROCEDURE: CXR1VW - CHEST 1VW EXAM: CR Chest, 1 View. CLINICAL HISTORY: [facility] COMPARISON: None provided. FINDINGS: LUNGS: There is no mass, infiltrate, or acute pulmonary abnormality. PLEURAL SPACES: No pleural effusion or pneumothorax. MEDIASTINUM: The cardiomediastinal silhouette is within normal limits. BONES: No aggressive appearing osseous lesion seen. IMPRESSION: No acute cardiopulmonary pathology is evident. /[place] DICTATED BY: TIFFANY WALKER Jr., MD DATE: 11/13/241515 ELECTRONICALLY SIGNED BY: TIFFANY WALKER Jr., MD DATE: 11/13/241515 ED Course ED Course Orders Procedure Category Date Status Time Cbc With Differential LAB 11/13/24 Complete 12:42 Basic Metabolic Panel LAB 11/13/24 Complete 12:42 Alcohol, Blood LAB 11/13/24 Complete 12:42 Urinalysis Profile LAB 11/13/24 Complete 12:42 Drug Screen Urine LAB 11/13/24 Complete 12:42 12 Lead Ekg Tracing- EKG 11/13/24 Complete Technical 12:42 Chest 1vw RAD 11/13/24 Resulted 12:42 Covid Rna Naat LAB 11/13/24 Complete 12:42 Influenza Type A & B, LAB 11/13/24 Complete Rapid 12:42 Troponin I High LAB 11/13/24 Complete Sensitivity 12:42 0.9%Nacl 1000ml (Ns PHA 11/13/24 Complete 1000ml) 12:42 Meclizine Hcl 25 Mg PHA 11/13/24 Complete (Antivert 25 Mg) 12:44 Current Medications Medications (Trade) Dose Ordered Sig/Dominguez Route PRN Reason Start Time Stop Time Status Last Admin Dose Admin Meclizine HCl (ANTIvert 25 mg) 25 mg ONCE STAT PO 11/13/24 12:44 11/13/24 12:45 DC 11/13/24 13:00 Sodium Chloride 1,000 ml @ 500 mls/hr Q2H STAT IV 11/13/24 12:42 11/13/24 14:41 DC 11/13/24 13:45 Vital Signs Date Time Temp Pulse Resp B/P (MAP) Pulse Ox O2 Delivery O2 Flow Rate FiO2 11/13/24 13:52 97.7 57 16 192/94 97 Room Air* 0 21 11/13/24 12:38 97.9 59 18 160/84 97 Room Air Medical Decision Making MDM MDM:69-year-old male with a history of hypertension and CKD not on dialysis coming in with complaints of cough and generalized body weakness for the last couple of weeks. Denies having any nausea, vomiting, diarrhea, dysuria, chest pain, chest discomfort, shortness a breath. CBC shows a leukocytosis, no anemia, thrombocytopenia. Chemistry shows elevated BUN and creatinine consistent with the patient's history of CKD, also seems to be patient's baseline. Troponin negative. Urine toxicology negative. Swabs positive for COVID. After fluid patient feels much better, vital signs stable. No hypoxia, tachypnea or any signs of respiratory distress. We will prescribe patient Lagevrio recommended by ER MD for covid. discussed with the patient on signs and symptoms of when to return back to the emergency room. Patient verbalized understanding, answered all questions. Differential diagnosis: Dehydration, electrolyte abnormality, COVID, flu, pneumonia Rationale: Tests considered and ordered secondary to shared decision making include: Previous outside records reviewed: Old ER visits. Risk of complication and/or morbidity or mortality of patient management: None Medications-Per medication reconciliation Need for hospitalization: Patient does not meet criteria for hospitalization. Need for emergency major/minor surgery: No There are no social concerns with this patient. Prescription drug management Prescriptions will include symptomatic care Patient's prior external medical records from other ER visits were reviewed by me as indicated. Prior testing and results from previous visits were reviewed. Prior tests were taken into account with medical decision making and resource utilization, independent historian/historians were used to obtain complete medical history. I independently interpreted the test that were performed, results were reviewed by me and considered findings on radiology if ordered. Medical management and examination interpretation discussions were had by me with other qualified healthcare professionals as indicated for the patient's care. DX & DISP Disposition: Discharge Departure Impression: Primary Impression: CKD (chronic kidney disease) Additional Impression: COVID-19 Condition: Stable Scripts Molnupiravir (Molnupiravir (Eua)) 200 Mg Capsule 4 CAP PO BID for 5 Days, #40 CAP 0 Refills Prov: JESUS CLINTON GAS REVERSER 11/13/24 Additional Instructions: You can take [id number] medications like Tylenol for body aches. Follow up with your primary doctor in 1-2 days. Return to the hospital if you have any worsening symptoms. Referrals: ROBERTO DIALLO MD (PCP) Time of Disposition: 15:01 I have reviewed the case, and I agree with, Diagnosis and Plan JESUS CLINTON NP Nov 13, 2024 15:03
[2024-11-13 15:49] VITALS: BP 152/64; PULSE 60; RESP 16; TEMP 97.8; O2SAT 99
== END 2024-11-13 15:50 | disposition home or self-care (01) ==
LOC: EDH 12:37
DX: U07.1 COVID-19 (principal); N18.9 Chronic kidney disease, unspecified; R11.2 Nausea with vomiting, unspecified; Z79.51 Long term (current) use of inhaled steroids; Z79.624 Long term (current) use of inhibitors of nucleotide synthesis; Z79.899 Other long term (current) drug therapy
CPT/HCPCS: 99285; 96360; 71045; 87635; 84484; 80048; 80305; 85025; 87804 ×2; 81001; 36415; 93005; J7030